=== PATIENT | female | born 1995 | race Caucasian/White ===

== ENCOUNTER 2022-08-18 16:28 | Outpatient (CLI) | payer OTHER, SELFPAY ==
--- NOTE | 2022-08-18 16:00 | CRLHL7_ITS ---
For Patients: As a result of the Century Cures Act, medical imaging exams and procedure reports are released immediately into your electronic medical record. You may view this report before your referring provider. If you have questions, please contact your health care provider. INDICATION: Right upper quadrant abdomen pain. TECHNIQUE: CT abdomen and pelvis without contrast. COMPARISON: 09/16/2021. FINDINGS: Lower chest: Unremarkable. Liver: Normal in size and attenuation. No suspicious masses. Gallbladder and bile ducts: Gallbladder is absent. No biliary dilatation. Pancreas: Unremarkable. No mass or inflammation. Spleen: Normal in size. No masses. Adrenal glands: Normal in size. No nodules. Kidneys: Normal in size. No suspicious masses, stones, or hydronephrosis. GI tract: Unremarkable. Normal in caliber. No sign of mass or inflammation. Post appendectomy. Vasculature: Abdominal aorta is normal in caliber. Lymph nodes: No lymphadenopathy. Peritoneum/Abdominal Wall: Moderate-sized fat containing umbilical hernia with mild inflammatory changes. No sign of mass or infiltration. No free air or significant free fluid. Pelvis: Unremarkable. No pelvic masses. Bones: Unremarkable for age. IMPRESSION: 1. Moderate size fat containing umbilical hernia with mild inflammatory changes. 2. Remainder of the exam is unremarkable. No other finding to explain right upper quadrant abdomen pain. Please note that all CT scans at this facility use dose modulation, iterative reconstruction, and/or weight-based dosing when appropriate to reduce radiation dose to as low as reasonably achievable. Dictated by Iban Do MD @ 08/18/2022 5:40:37 PM (Electronically Signed)
== END 2022-08-18 16:29 | disposition home or self-care (01) ==
LOC: CT 16:29
PROVIDERS: PCP Physician Assistant Medical; Visit Provider Family Medicine
DX: R10.11 Right upper quadrant pain (principal); K42.9 Umbilical hernia without obstruction or gangrene
CPT/HCPCS: 74176

== ENCOUNTER 2025-01-16 13:24 | Emergency (ER) | payer OTHER, SELFPAY ==
[2025-01-16 13:27] VITALS: BP 142/95; PULSE 74; RESP 16; TEMP 35.6; O2SAT 100; BMI 34.1
--- NOTE | 2025-01-16 14:08 | CRLHL7_ITS ---
For Patients: As a result of the Century Cures Act, medical imaging exams and procedure reports are released immediately into your electronic medical record. You may view this report before your referring provider. If you have questions, please contact your health care provider. INDICATION: : abd pain, hx of intusseption, nausea, appy, gastric bypass,. TECHNIQUE: CT abdomen and pelvis acquired with 117 cc Isovue 370 IV contrast. COMPARISON: None. FINDINGS: Lower chest: Left basilar calcified granuloma. Liver: Mild periportal edema. Otherwise, unremarkable. Gallbladder and bile ducts: Cholecystectomy. No biliary ductal dilatation. Pancreas: Unremarkable. No mass or inflammation. Spleen: Mild splenomegaly, measuring 15.0 cm in craniocaudal extent. Adrenal glands: Unremarkable. No nodules. Kidneys: Unremarkable. No suspicious masses, stones, or hydronephrosis. GI tract: Postsurgical changes of Jacky-en-Y gastric bypass. Bowel is normal in caliber without evidence of obstruction. Vasculature: Abdominal aorta is normal in caliber. Mesenteric arteries are patent. Lymph nodes: No lymphadenopathy. Peritoneum/Abdominal Wall: Mild diffuse body wall edema. No free air or significant free fluid. Pelvis: IUD in place. Likely right ovarian corpus luteum. Bones: Inhs-yo-qvsdxldg lumbar levocurvature. IMPRESSION: No acute findings in the abdomen or pelvis. Please note that all CT scans at this facility use dose modulation, iterative reconstruction, and/or weight-based dosing when appropriate to reduce radiation dose to as low as reasonably achievable. Dictated by Wagner Rao MD @ 01/16/2025 4:42:59 PM (Electronically Signed)
--- OUTSIDE RECORDS SUMMARY | 2025-01-16 14:24 | XMS_ITS | Encounter Summary ---
Author Organization [facility] Address [address] [place] [address] Care Team Providers Care Upholstery Instructor Name Role Phone Kathryn Araiza APRN POSTAL TRANSPORTATION CLERK Unavaila ble Nova Samaniego DO Primary Care Provider [phone] Kathryn Araiza APRN POSTAL TRANSPORTATION CLERK Unavaila ble Encounter Details Date Type Department Care Team (Late st Contact Info) Description 10/06/2023 [facility] [place] Advice [facility] [address] [place] [address] Kathryn Araiza APRN POSTAL TRANSPORTATION CLERK [address] [id number] [place] [address] Social History Tobacco Use Types Packs/Day Years Used Date Smoking Tobacco: Never Smokeless Tobacco: Never PHQ-2 Answer Date Recorded PHQ-2 Score 0 06/25/2023 Adolescent Education Answer Date Record ed Getting School Help Needed Not on file 03/07 Comments Unknown Sex and Gender Information Value Date Recorded Sex Assigned at Not on file Legal Sex Female 8:50 AM CDT Gender Identity Not on file Sexual Orientation Not on file documented as of this encounter Plan of Treatment Not on file documented as of this encounter Visit Diagnoses Not on filedocumented in this encounter Care Teams Upholstery Instructor Relationship Specialty Start Date End Date Nova Samaniego DO [address] [place] [address] PCP - General 06/25/23 Kathryn Araiza APRN POSTAL TRANSPORTATION CLERK [address] [address] Nurse Practitioner Neurology 03/01/21 Kathryn Araiza APRN POSTAL TRANSPORTATION CLERK [address] [address] Assigned Neuroscience Provider 07/09/23 01/03/25 documented as of this encounter
--- OUTSIDE RECORDS SUMMARY | 2025-01-16 14:24 | XMS_ITS | Encounter Summary ---
Author Organization [facility] Address [address] [place] [address] Care Team Providers Care Rubber Goods Repairer Name Role Phone Elsewhere, Pcp Primary Care Provider Unavailabl e Encounter Details Date Type Department Care Team (Late st Contact Info) Description 01/13/2025 Clinical Communication Division of Metabolic and Abdominal Wall Reconstructive Surgery in [place], [place] [address] [place] [phone] Libby Lehman, SARAY, C.N.P., M.S.N. [address] [place] [phone] Social History Tobacco Use Types Packs/Day Years Used Date Smoking Tobacco: Never Passive Smoke Exposure: Never Smokeless Tobacco: Never Alcohol Use Standard Drinks/Week Comments Not Currently 1 (1 standard drink = 0.6 oz pur e alcohol) once a month [facility] Utilities Answer Date Recorded In the past 12 months has e [employer], gas, oil, or water [employer] threatened to shut off services in your home? No 12/16/2023 Humiliation, Afraid, Rape, and Kick questionnair e Answer Date Recorded Within the last year, have y ou been afraid of your partner or ex-partner? No 07/15/2022 Within the last year, have y ou been humiliated or emotionally abused in other ways by your partner or ex-partner? No Within the last year, have y ou been kicked, hit, slapped, or otherwise physically hurt by your partner or ex-partner? No 07/15/2022 Within the last year, have y ou been raped or forced to have any kind of sexual activity by your partner or ex-partner? No 07/15/2022 Hunger Vital Sign Answer Date Recorded Within the past 12 months, y ou worried that your food would run out before you got the money to buy more. Never true 12/16/19 24 Within the past 12 months, t he food you bought just didn't last and you didn't have money to get more. Never true 12/16/2023 PRAPARE - Transportation Answer Date Re corded In the past 12 months, has l ack of transportation kept you from medical appointments or from getting medications? No 08/2023 In the past 12 months, has l ack of transportation kept you from meetings, work, or from getting things needed for daily living? No 12/16/2023 Depression Answer Date Recor ded PHQ-9 Total Score (max 27) 4 05/06 Housing Stability Answer Date Recorded What is your living situation today? I have a [facility] place to live 12/16/2023 Education Answer Date Recorded What is the highest level of school you have completed or the highest degree you have received? Bachelor's degree (e.g., BA, AB, BS) 07/15/2022 Comments Unknown Sex and Gender Information Value Date Recorded Sex Assigned at Female 11/06/2017 10:09 AM CDT Legal Sex Female 10:56 PM WATER RESOURCES ENGINEER Gender Identity Female 11/06/2017 10:09 AM CDT Sexual Orientation Straight 11/06/2017 10 :09 AM CDT documented as of this encounter Plan of Treatment Upcoming Encounters Date Type Department Care Team (Latest Contact Info) Description 01/19/2025 12:30 PM CDT Office Visit Division of Metabolic and Abdominal Wall Reconstructive Surgery in [place], [place] [address] [place] [phone] [place] [phone] 01/19/2025 4:00 PM CDT Office Visit Department of Neurology in [place], [place] [address] [place] [phone] Jerald Ochoa M.D. [address] [place] [phone] 02/15/2025 1:30 PM CDT Appointment Department of Neurology in [place], [place] [address] [place] [phone] Jerald Ochoa M.D. [address] [place] [phone] Brittany Pereira, SARAY, C.N.P., M.S.N. [address] [place] [phone] Discharge Disposition: Home or Self Care 03/21/2025 3:30 PM CDT Office Visit Department of Otorhinolaryngology in [place], [place] [address] [place] [phone] Debbie Roberts M.D. [address] [place] [phone] documented as of this encounter Visit Diagnoses Not on filedocumented in this encounter Additional Health Concerns Assessment Noted Time PHQ-9 Depression Total Score: 4 05/06/20 24 9:05 AM WATER RESOURCES ENGINEER documented as of this encounter Care Teams Rubber Goods Repairer Relationship Specialty Start Date End Date Elsewhere, Pcp PCP - General Internal Medicine 05/20/22 documented as of this encounter
--- OUTSIDE RECORDS SUMMARY | 2025-01-16 14:24 | XMS_ITS | Encounter Summary ---
Author Organization [facility] Address [address] [place] [address] Care Team Providers Care Community Development Worker Name Role Phone Elsewhere, Pcp Primary Care Provider Unavailabl e Reason for Referral * Outpatient (Routine) - Authorized Specialty Diagnoses / Procedures Referred By Rachelle t Referred To Contact General Surgery Libby Lehman APRN C.N.P., M.S.N. [address] [place] [phone] Phone: tel: fax: Kuldip Valdivia M.D. [address] [place] [phone] Phone: tel: fax: Referral ID Status Reason Start Date Expiration Date V isits Requested Visits Authorized [id number] Authorized 01/13/2025 07/15/2026 1 1 Scheduling Instructions 1pm with lux Valdivia Encounter Details Date Type Department Care Team (Late st Contact Info) Description 01/13/2025 Orders Only Division of Metabolic and Abdominal Wall Reconstructive Surgery in [place], [place] [address] [place] [phone] Libby Lehman APRN C.N.P., M.S.N. [address] [place] [phone] Social History Tobacco Use Types Packs/Day Years Used Date Smoking Tobacco: Never Passive Smoke Exposure: Never Smokeless Tobacco: Never Alcohol Use Standard Drinks/Week Comments Not Currently 1 (1 standard drink = 0.6 oz pur e alcohol) once a month [facility] Utilities Answer Date Recorded In the past 12 months has e [employer], gas, oil, or water company threatened to shut off services in your [...] your living situation today? I have a [facility] place to live 12/16/2023 Education Answer Date Recorded What is the highest level of school you have completed or the highest degree you have received? Bachelor's degree (e.g., BA, AB, BS) 07/15/2022 Comments Unknown Sex and Gender Information Value Date Recorded Sex Assigned at Female 11/06/2017 10:09 AM CDT Legal Sex Female 10:56 PM MATERIALS RESEARCH ENGINEER Gender Identity Female 11/06/2017 10:09 AM CDT Sexual Orientation Straight 11/06/2017 10 :09 AM CDT documented as of this encounter Plan of Treatment Upcoming Encounters Date Type Department Care Team (Latest Contact Info) Description 01/19/2025 12:30 PM CDT Office Visit Division of Metabolic and Abdominal Wall Reconstructive Surgery in [place], [place] [address] [place] [phone] Kuldip Valdivia M.D. [address] [place] [phone] 01/19/2025 4:00 PM CDT Office Visit Department of Neurology in [place], [place] [address] [place] [phone] Jerald Ochoa M.D. [address] [place] [phone] 02/15/2025 1:30 PM CDT Appointment Department of Neurology in [address] [phone] Jerald Ochoa M.D. [address] [place] [phone] Brittany Pereira, SARAY, C.N.P., M.S.N. [address] [place] [phone] Discharge Disposition: Home or Self Care 03/21/2025 3:30 PM CDT Office Visit Department of Otorhinolaryngology in [place], [place] [address] [place] [phone] Debbie Roberts M.D. [address] [place] [phone] Scheduled Referrals Name Type Priority Associated Diagnoses Orde r Schedule General Surgery office visit (clinic) Outpatient Referral Routine Expected: 01/25/2025, Expires: 04/15/2026 documented as of this encounter Visit Diagnoses Not on filedocumented in this encounter Additional Health Concerns Assessment Noted Time PHQ-9 Depression Total Score: 4 05/06/20 24 9:05 AM MATERIALS RESEARCH ENGINEER documented as of this encounter Care Teams Community Development Worker Relationship Specialty Start Date End Date Elsewhere, Pcp PCP - General Internal Medicine 05/20/22 documented as of this encounter
--- OUTSIDE RECORDS SUMMARY | 2025-01-16 14:24 | XMS_ITS | Encounter Summary ---
Author Organization [facility] Address [address] [place] [address] Care Team Providers Care Landman Name Role Phone Elsewhere, Pcp Primary Care Provider Unavailabl e Encounter Details Date Type Department Care Team (Late st Contact Info) Description 01/13/2025 Clinical Communication Division of Metabolic and Abdominal Wall Reconstructive Surgery in [place], [place] [address] [place] [phone] Libby Lehman, SARAY, C.N.P., M.S.N. [address] [place] [phone] Social History Tobacco Use Types Packs/Day Years Used Date Smoking Tobacco: Never Passive Smoke Exposure: Never Smokeless Tobacco: Never Alcohol Use Standard Drinks/Week Comments Not Currently 1 (1 standard drink = 0.6 oz pur e alcohol) once a month [facility] Utilities Answer Date Recorded In the past 12 months has e [employer], gas, oil, or water [employer] threatened to shut off services in your [...] your living situation today? I have a [facility] place to live 12/16/2023 Education Answer Date Recorded What is the highest level of school you have completed or the highest degree you have received? Bachelor's degree (e.g., BA, AB, BS) 07/15/2022 Comments Unknown Sex and Gender Information Value Date Recorded Sex Assigned at Female 11/06/2017 10:09 AM CDT Legal Sex Female 10:56 PM DRIER OPERATOR HELPER Gender Identity Female 11/06/2017 10:09 AM CDT Sexual Orientation Straight 11/06/2017 10 :09 AM CDT documented as of this encounter Miscellaneous Notes * Telephone Encounter - Libby Lehman APRN, C.N.P., M.S.N. 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 Valdivia August 10, 2023 she had an EGD that which revealed multiple small healing clean based marginal ulcers. These were treated and on December 15, 2023 shehad a repeat EGD that confirmed marginal ulcers were healed. She continued on twice daily PPI for 3months and then reduce to once daily PPI. She continued to open the capsules. She reached out to myself on June 23, 2023 with increased epigastric pain. I increase her omeprazole 40 mg 2 twice daily at that time and started her on Carafate 4 times a day for concern of recurrent marginal ulcer. EGD on 07/21/[address] Edwards was normal with no ulcer and GJ measured 25 mm. At that time she continue to have constant epigastric discomfort that was worse with eating. She was on Zepbound and given her anatomy looked normal, I recommended she stop Zepbound however she has continued and remains on 15 mg weekly. She has been having ongoing issues that she has been seeing her primary care provider. Main complaints on the phone today are lower abdominal pain which has changed from previous epigastric when I met with her last. She notes pain is a 4 to 10/10. Within 15-60 minutes postprandially she has abdominal cramping, sharp pain followed by nausea and subsequent vomiting. She is vomiting at least a couple times per day. Nausea is constant. Her emesis consists of partially digested food. CT scan was completed at outside facility-[facility]. I have requested complete imaging be sent here however report indicates small-bowel to small- bowel short-segment intussusception noted in the left upper quadrant of the abdomen near the anastomosis. Colon decompressed with a large amount of stool within the colon. I discussed the case with Dr. Valdivia who would like to see her in clinic next week. She is currently scheduled with him on , 01/19/2025. I have instructed her to increase MiraLax to twice daily in order to promote bowel movements. documented in this encounter Plan of Treatment Upcoming Encounters Date Type Department Care Team (Latest Contact Info) Description 01/19/2025 12:30 PM CDT Office Visit Division of Metabolic and Abdominal Wall Reconstructive Surgery in [place], [place] [address] [place] [phone] Kuldip Valdivia M.D. [address] [place] [phone] 01/19/2025 4:00 PM CDT Office Visit Department of Neurology in [place], [place] [address] [place] [phone] Jerald Ochoa M.D. [address] [place] [phone] 02/15/2025 1:30 PM CDT Appointment Department of Neurology in [place], [place] [address] [place] [phone] Jerald Ochoa M.D. [address] [place] [phone] Brittany Pereira APRN, C.N.P., M.S.N. [address] [place] [phone] Discharge Disposition: Home or Self Care 03/21/2025 3:30 PM CDT Office Visit Department of Otorhinolaryngology in [place], [place] [address] [place] [phone] Debbie Roberts M.D. [address] [place] [phone] documented as of this encounter Visit Diagnoses Not on filedocumented in this encounter Additional Health Concerns Assessment Noted Time PHQ-9 Depression Total Score: 4 05/06/20 24 9:05 AM DRIER OPERATOR HELPER documented as of this encounter Care Teams Landman Relationship Specialty Start Date End Date Elsewhere, Pcp PCP - General Internal Medicine 05/20/22 documented as of this encounter
--- OUTSIDE RECORDS SUMMARY | 2025-01-16 14:24 | XMS_ITS | Clinical Summary ---
Author Organization [facility] Address [address] [place] [address] Care Team Providers Care Oil Developer Name Role Phone Kathryn Araiza Josemarilynn VENEER JOINER CIVIL ENGINEERING SPECIALIST Unavaila ble ShaqNova sadler Roxana DO Primary Care Provider [phone] Allergies Active Allergy Reactions Criticality Noted Date Comments Dairy Digestive Nausea and Vomiting 03/21/2021 Lactose Nausea and Vomiting 11/19/2016 Lisinopril Rash Low 10/28/2017 Metformin 07/09/2020 Other reaction(s): Vomiting Medications acetaminophen (TYLENOL) 500 MG tablet Take 1,000 mg by mouth 1 Active albuterol (PROAIR HFA/PROVENTIL HFA/VENTOLIN HFA) 108 (90 BASE) MCG/ACT Inhaler Active VENTOLIN HFA 108 (90 Base) MCG/ACT inhaler INHALE 1 TO 2 PUFFS BY MOUTH EVERY 6 HOURS NEEDED 1 Active cetirizine (ZYRTEC) 10 MG tablet Take 10 mg by mouth 9 Active etonogestrel (NEXPLANON) 68 MG IMPL Inject 1 each Subcutaneous 1 Active fluticasone (FLONASE) 50 MCG/ACT nasal spray SHAKE LQ AND U 2 SPRAYS IEN QD 0 Active montelukast (SINGULAIR) 10 MG tablet Take 1 tablet by mouth At Bedtime 1 Active Rimegepant Sulfate 75 MG TBDPIndications :Intractable chronic migraine without aura and without status migrainosus Take 75 mg by mouth See Admin Instructions Take 75 mg orally per 24 hours placed on or under the tongue; MAX 75 mg/24 hours; 8 tablet 9 1 Active budesonide (RINOCORT AQUA) 32 MCG/ACT nasal spray SHAKE LIQUID AND USE 2 SPRAYS IN EACH NOSTRIL EVERY DAY 2 Active cyanocobalamin (CYANOCOBALAMIN ) 1000 MCG/ML injection Inject 1,000 mcg Subcutaneous every 30 days 3 Active fexofenadine (TL) 180 MG tablet Take 180 mg by mouth daily 2 Active ipratropium - albuterol 0.5 mg/2.5 mg/3 mL (DUONEB) 0.5-2.5 (3) MG/3ML neb solution Inhale 3 mLs into the lungs every 4 hours as needed 3 Active levalbuterol (XOPENEX HFA) 45 MCG/ACT inhaler Inhale 1-2 puffs into the lungs every 6 hours as needed for shortness of breath or wheezing 3 Active prochlorperazin e (COMPAZINE) 5 MG tabletIndicatio ns:Intractable chronic migraine without aura and without status migrainosus Take 1-2 tablets (5-10 mg) by mouth every 6 hours as needed for nausea or vomiting 20 tablet 3 4 Active naratriptan (AMERGE) 1 MG tabletIndicatio ns:Intractable chronic migraine without aura and without status migrainosus Take 1 tablet (1 mg) by mouth at onset of headache for migraine May repeat in 4 hours. Max 5 tablets/24 hours. 12 tablet 5 4 Active Fremanezumab-vf rm (AJOVY) 225 MG/1.5ML SOAJIndications :Intractable chronic migraine without aura and without status migrainosus Inject 225 mg Subcutaneous every 30 days 1.5 mL 11 4 Active Active Problems Problem Noted Date Diagnosed Date Anxiety 11/06/2021 Asthma 11/06/2021 Calculus of gallbladder with cholecystitis without biliary obstruction 11/06/2021 Diabetes mellitus 11/06/2021 Kidney disease 11/06/2021 Obstructive lung disease 11/06/2021 Restrictive lung disease 11/06/2021 Dysphagia 07/17/2021 Moderate persistent asthma, unspecified whether complicated 07/05/2021 Insomnia, idiopathic 07/05/2020 Idiopathic intracranial hypertension 05/02/2020 Hepatic steatosis 02/21/2020 Dyslipidemia 02/06/2020 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 Acute appendicitis 08/16/2019 Fatigue 04/20/2019 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 (11/06/2021): Path report [facility] (spring 2016): hyperkeratoses lateral edge tongue, premalignant epithelial dysplasia Overview: Path report [facility] (spring 2016): hyperkeratoses lateral edge tongue, premalignant epithelial dysplasia Other proteinuria 06/16/2017 Overview (11/06/2021): [facility] notes, 10/2016 Hypertension 10/20/2016 Prolonged QT interval 06/06/2016 Labile essential hypertension 06/05/2016 Depression with anxiety 09/06/2014 Vitamin D deficiency 09/06/2014 Lactose intolerance 08/22/2014 Morbid obesity 05/26/2011 Family History Medical History Relation Comments Macular Degeneration Paternal Grandmother Glaucoma No family hx of Relation Status Comments Paternal Grandmother Social History Tobacco Use Types Packs/Day Years Used Date Smoking Tobacco: Never Smokeless Tobacco: Never Tobacco Cessation:Counseling Given: Not Answered PHQ-2 Answer Date Recorded PHQ-2 Score 0 06/25/2023 Adolescent Education Answer Date Record ed Getting School Help Needed Not on file 03/07 Comments Unknown Sex and Gender Information Value Date Recorded Sex Assigned at Not on file Legal Sex Female 8:50 AM CDT Gender Identity Not on file Sexual Orientation Not on file Last Filed Vital Signs Vital Sign Reading Time Taken Comments Blood Pressure - - Pulse - - Temperature - - Respiratory Rate - - Oxygen Saturation - - Inhaled Oxygen Concentration - - Weight 181.4 kg (400 lb) 06/25/2023 10:56 AM FILM CASTING OPERATOR Height 177.8 cm (5' 10) 06/25/2023 10:56 AM FILM CASTING OPERATOR Body Mass Index 57.39 06/25/2023 10:56 AM FILM CASTING OPERATOR Plan of Treatment Health Maintenance Due Date Last Done Comments A1C 1995 ADVANCE CARE PLANNING 1995 ANNUAL REVIEW OF HM ORDERS 1995 BMP 1995 COPD ACTION PLAN 1995 DIABETIC FOOT EXAM 1995 LIPID 1995 MICROALBUMIN 1995 SPIROMETRY 1995 YEARLY PREVENTIVE VISIT 1998 HIV SCREENING 2010 HEPATITIS C SCREENING 2013 PAP 2016 EYE EXAM 11/06/2022 11/06/2021 COVID-19 VACCINE (2023-2 5 season) 2024 04/22/2023, 05/20/2022, 05/03/2021, Additional history exists PHQ-2 (once per calendar year) 2024 0 06/25/2023, 11/06/2021, 03/21/2021 INFLUENZA VACCINE (#1) 2025 , 05/20/2022, 03/19/2021, Additional history exists DTAP/TDAP/TD VACCINE (8 - Td or Tdap) 06/05/2027 06/05/2017, 02/11/2007, 07/24/2000, Additional history exists ZOSTER VACCINE (1 of 2) 2045 HEPATITIS B VACCINE Completed 04/27/1996, 1995, 1995 MENINGITIS VACCINE Completed 04/18/2013 HPV VACCINE Completed 04/05/2015, 02/2014, 04/18/2013 PNEUMOCOCCAL VACCINE: PEDIAT RICS (0 to 5 YEARS) AND AT-RISK PATIENTS (6 to 49 YEARS) Completed 04/22/2023, 03/19/2021 Insurance VNG PLAN [employer] Care Teams Oil Developer Relationship Specialty Start Date End Date Nova Samaniego DO [address] [place] [address] PCP - General 06/25/23 Kathryn Araiza APRN CIVIL ENGINEERING SPECIALIST [address] [facility] [id number] [address] Nurse Practitioner Neurology 03/01/21
--- OUTSIDE RECORDS SUMMARY | 2025-01-16 14:24 | XMS_ITS | Encounter Summary ---
Author Organization [facility] Address [address] [place] [address] Care Team Providers Care Button Inspector Name Role Phone Kathryn Araiza APRN PUBLIC HEALTH DIETITIAN Unavaila ble Nova Samaniego DO Primary Care Provider [phone] Kathryn Araiza APRN PUBLIC HEALTH DIETITIAN Unavaila ble Encounter Details Date Type Department Care Team (Late st Contact Info) Description 06/25/2023 [facility] Advice [facility] [address] [place] [address] Kathryn Araiza APRN PUBLIC HEALTH DIETITIAN 9 [id number] [place] [address] Social History Tobacco Use Types [...] on filedocumented in this encounter Care Teams Button Inspector Relationship Specialty Start Date End Date Nova Samaniego DO [address] [place] [address] PCP - General 06/25/23 Kathryn Araiza APRN PUBLIC HEALTH DIETITIAN [address] [address] Nurse Practitioner Neurology 03/01/21 Kathryn Araiza APRN PUBLIC HEALTH DIETITIAN [address] [address] Assigned Neuroscience Provider 07/09/23 01/03/25 documented as of this encounter
--- OUTSIDE RECORDS SUMMARY | 2025-01-16 14:24 | XMS_ITS | Encounter Summary ---
Author Organization [facility] Address [address] [place] [address] Care Team Providers Care Client Relationship Manager Name Role Phone Kathryn Araiza APRN INSTRUCTIONAL TECHNOLOGY TEACHER Unavaila ble Nova Samaniego DO Primary Care Provider [phone] Kathryn Araiza APRN INSTRUCTIONAL TECHNOLOGY TEACHER Unavaila ble Encounter Details Date Type Department Care Team (Late st Contact Info) Description 06/25/2023 [facility] [place] Medical Advice [facility] [address] [place] [address] Kathryn Araiza APRN INSTRUCTIONAL TECHNOLOGY TEACHER 9 [id number] [place] [address] Social History Tobacco Use Types [...] on filedocumented in this encounter Care Teams Client Relationship Manager Relationship Specialty Start Date End Date Nova Samaniego DO [address] [place] [address] PCP - General 06/25/23 Kathryn Araiza APRN INSTRUCTIONAL TECHNOLOGY TEACHER [address] [address] Nurse Practitioner Neurology 03/01/21 Kathryn Araiza APRN INSTRUCTIONAL TECHNOLOGY TEACHER [address] [address] Assigned Neuroscience Provider 07/09/23 01/03/25 documented as of this encounter
--- OUTSIDE RECORDS SUMMARY | 2025-01-16 14:24 | XMS_ITS | Encounter Summary ---
Author Organization [facility] Address [address] [place] [address] Care Team Providers Care Tow Operator Name Role Phone Maine Lopez PA-C Primary Care Provider Unav Kathryn Gonzalez CAD ENGINEER ELECTRICAL & INSTRUMENTATION SUPERVISOR Unavaila ble Jeremy Boateng MD Unavailable [phone] Nova Samaniego DO Primary Care Provider [phone] Kathryn Araiza CAD ENGINEER ELECTRICAL & INSTRUMENTATION SUPERVISOR Unavaila ble Encounter Details Date Type Department Care Team (Late st Contact Info) Description 01/06/2023 [facility] Medical Advice [facility] [address] [place] [address] Kathryn Araiza, CAD ENGINEER ELECTRICAL & INSTRUMENTATION SUPERVISOR [address] [place] [address] [id number] [place] [address] Social History Tobacco Use Types Packs/Day Years Used Date Smoking Tobacco: Never Smokeless Tobacco: Never PHQ-2 Answer Date Recorded PHQ-2 Score 0 03/21/2021 Comments Unknown Sex and Gender Information Value Date Recorded Sex Assigned at Not on file Legal Sex Female 8:50 AM CDT Gender Identity Not on file Sexual Orientation Not on file documented as of this encounter Plan of Treatment Not on file documented as of this encounter Visit Diagnoses Not on filedocumented in this encounter Care Teams Tow Operator Relationship Specialty Start Date End Date Maine Lopez PA-C PCP - General 03/01/21 06/24/23 Nova Samaniego DO [address] [place] [address] PCP - General 06/25/23 Kathryn Araiza APRN ELECTRICAL & INSTRUMENTATION SUPERVISOR [address] [place] [address] Nurse Practitioner Neurology 03/01/21 Jeremy Boateng MD [address] [place] [address] Assigned Surgical Provider 12/07/21 Kathryn Araiza APRN ELECTRICAL & INSTRUMENTATION SUPERVISOR [address] [place] [address] Assigned Neuroscience Provider 07/09/23 01/03/25 documented as of this encounter
--- OUTSIDE RECORDS SUMMARY | 2025-01-16 14:24 | XMS_ITS | Encounter Summary ---
Author Organization [facility] Address [address] [place] [address] Care Team Providers Care Dry Plasterer Name Role Phone Maine Lopez PA-C Primary Care Provider Unav Kathryn Gonzalez SOLUTION DEVELOPER FRONTEND ENGINEER Unavaila ble Jeremy Boateng MD Unavailable [phone] Nova Samaniego DO Primary Care Provider [phone] Kathryn Araiza SOLUTION DEVELOPER FRONTEND ENGINEER Unavaila ble Encounter Details Date Type Department Care Team (Late st Contact Info) Description 01/12/2023 [facility] Medical Advice [facility] Neu[facility] [address] [address] Martita Paul RN Social History Tobacco Use Types Packs/Day Years [...] on filedocumented in this encounter Care Teams Dry Plasterer Relationship Specialty Start Date End Date Maine Lopez PA-C PCP - General 03/01/21 06/24/23 Nova Samaniego DO [address] [place] [address] PCP - General 06/25/23 Kathryn Araiza APRN FRONTEND ENGINEER [address] [place] [phone] Nurse Practitioner Neurology 03/01/21 Jeremy Boateng MD [address] [place] [phone] Assigned Surgical Provider 12/07/21 Kathryn Araiza APRN FRONTEND ENGINEER [address] [place] [phone] Assigned Neuroscience Provider 07/09/23 01/03/25 documented as of this encounter
--- OUTSIDE RECORDS SUMMARY | 2025-01-16 14:24 | XMS_ITS | Encounter Summary ---
Author Organization [facility] Address [address] [place] [address] Care Team Providers Care Credit Administrator Name Role Phone Elsewhere, Pcp Primary Care Provider Unavailabl e Encounter Details Date Type Department Care Team (Late st Contact Info) Description 01/13/2025 Clinical Communication Division of Metabolic and Abdominal Wall Reconstructive Surgery in [place], [place] [address] [place] [phone] Libby Lehman, SARAY, C.N.P., M.S.N. [address] [place] [phone] Social History Tobacco Use Types Packs/Day Years Used Date Smoking Tobacco: Never Passive Smoke Exposure: Never Smokeless Tobacco: Never Alcohol Use Standard Drinks/Week Comments Not Currently 1 (1 standard drink = 0.6 oz pur e alcohol) once a month [facility] Utilities Answer Date Recorded In the past 12 months has e [employer], gas, oil, or water [employer] threatened to shut off services in your [...] situation today? I have a [facility] place to live 12/16/2023 Education Answer Date Recorded What is the highest level of school you have completed or the highest degree you have received? Bachelor's degree (e.g., BA, AB, BS) 07/15/2022 Comments Unknown Sex and Gender Information Value Date Recorded Sex Assigned at Female 11/06/2017 10:09 AM CDT Legal Sex Female 10:56 PM TAPE SEWING MACHINE OPERATOR Gender Identity Female 11/06/2017 10:09 AM CDT Sexual Orientation Straight 11/06/2017 10 :09 AM CDT documented as of this encounter Plan of Treatment Upcoming Encounters Date Type Department Care Team (Latest Contact Info) Description 01/19/2025 12:30 PM CDT Office Visit Division of Metabolic and Abdominal Wall Reconstructive Surgery in [place], [place] [address] [place] [phone] Kuld[place] [address] 01/19/2025 4:00 PM CDT Office Visit Department of Neurology in [place], [place] [address] [place] [phone] Jerald Ochoa M.D. [address] [place] [phone] 02/15/2025 1:30 PM CDT Appointment Department of Neurology in [place], [place] [address] [place] [phone] Jerald Ochoa M.D. [address] [place] [phone] Brittany Pereira, SARAY, C.N.P., M.S.N. [address] [place] [phone] Discharge Disposition: Home or Self Care 03/21/2025 3:30 PM CDT Office Visit Department of Otorhinolaryngology in [place], [place] [address] [place] [phone] Debbie Roberts M.D. [address] [place] [phone] documented as of this encounter Visit Diagnoses Not on filedocumented in this encounter Additional Health Concerns Assessment Noted Time PHQ-9 Depression Total Score: 4 05/06/20 24 9:05 AM TAPE SEWING MACHINE OPERATOR documented as of this encounter Care Teams Credit Administrator Relationship Specialty Start Date End Date Elsewhere, Pcp PCP - General Internal Medicine 05/20/22 documented as of this encounter
--- OUTSIDE RECORDS SUMMARY | 2025-01-16 14:25 | XMS_ITS | Clinical Summary ---
Author Organization [facility] Address [address] [place] [address] Care Team Providers [employer] Name Role Phone Elsewhere, Pcp Primary Care Provider Unavailabl e Source Comments Patient records contain information from all sites at [facility]. For routine questions regarding patient records, call [phone] during business hours, M-F 8:00 AM - 5:00 PM Central Time. Record requests for emergency care only can be directed to [phone] at any time.[facility] Allergies Active Allergy Reactions Criticality Noted Date Comments Lactase Nausea And Vomiting, GI intolerance 03/21/2021 Lactose Nausea And Vomiting, Other (see comments) 11/19/2016 Lisinopril Rash,Other (see comments) Low 10/28/2017 Metformin GI intolerance 07/09/2020 Other reaction(s): Vomiting Medications * This document contains information received from the source organization and may not represent a complete record from that organization. blood pressure monitor kit Check blood pressure daily and record readings for appointments 03/12/20 20 Active montelukast (SINGULAIR) 10 mg tablet Take 1 tablet by mouth at bedtime. 08/21/19 21 Active mometasone-formote rol (DULERA 100) 100-5 mcg/actuation inhaler Inhale 2 puffs 2 (two) times a day. Rinse mouth with water after use to reduce aftertaste and incidence of candidiasis. Do not swallow. Active ipratropium-albute roL (DUONEB) 0.5-2.5 mg/3 mL nebulizer solution Inhale 3 mL by nebulization 4 (four) times a day as needed for wheezing. Active levalbuterol (XOPENEX HFA) 45 mcg/actuation inhaler Inhale 2 puffs every 6 (six) hours as needed for wheezing or shortness of breath. Active albuterol 2.5 mg /3 mL nebulizer solution Inhale 2.5 mg by nebulization every 6 (six) hours as needed for wheezing. Active pediatric multivitamin-iron- minerals (FLINTSTONES COMPLETE) chewable tablet Chew 1 tablet 2 (two) times a day. 05/07/20 Active calcium carbonate 1000 mg (400 mg calcium) chewable tablet Chew 1 tablet (400 mg of calcium total) 2 (two) times a day with meals. For life 05/07/20 Active SQ 3 ml Injection Kit Use as directed to inject prescribed medication. 1 kit = #15-3ml syr, #30-27G 1/2 needles, #30 alcohol wipes 1 kit 3 3:17 PM TRAFFIC ENUMERATOR 05/07/20 23 Active cyanocobalamin (Vitamin B-12) 1,000 mcg/mL injection Inject 1 mL (1,000 mcg total) under the skin every 30 (thirty) days. Please dispense with injection kit. Acceptable needle range is 25 to 27 gauge, 1/2 to 5/8 of an inch long. For life 3 mL 3 5 6:07 PM CDT 09/10/19 24 Active prochlorperazine (COMPAZINE) 5 mg tablet Take 5 mg by mouth every 6 (six) hours as needed for vomiting or nausea. 06/25/19 24 Active hydrOXYzine (Atarax) 25 mg tablet Take 25 mg by mouth every 8 (eight) hours as needed for anxiety. 11/23/19 24 Active mometasone 0.033 %-ipratropium 0.02 %-diphenhydramine 0.033 % nasal spray Administer 2 sprays into each nostril 2 (two) times a day. Shake very well prior to each use. 84 mL 11 5 3:52 PM CDT 04/18/20 24 025 Active venlafaxine (Effexor) 75 mg tablet Take 1 tablet (75 mg total) by mouth 2 (two) times a day. 180 tablet 3 4 5:04 PM TRAFFIC ENUMERATOR 08/17/19 24 Active losartan (Cozaar) 50 mg tablet Take 1 tablet (50 mg total) by mouth daily. 90 tablet 3 4 5:04 PM TRAFFIC ENUMERATOR 07/20/19 24 Active rimegepant (Nurtec ODT) [address] 1 tablet on the tongue every day if needed for headache 8 tablet 11 5 6:07 PM CDT 04/15/20 24 Active buPROPion (Wellbutrin) 100 mg tablet Take 1 tablet (100 mg total) by mouth 3 (three) times a day based on updated ISMP guidelines. Do not crush or chew. 270 tablet 4 4 5:04 PM TRAFFIC ENUMERATOR 01/12/20 24 Active naratriptan (Amerge) 2.5 mg tabletIndications: Chronic Migraine Take 1 tablet (2.5 mg total) by mouth as needed for migraine. May repeat dose in 4 hours as needed. Max 5 mg per day. Limit use to no more than 9 days a month. 54 tablet 3 4 11:04 AM TRAFFIC ENUMERATOR 05/06/20 24 Active Additional Information Patient taking differently: 5 mgoral As needed, migraine, May repeat dose in 4 hours as needed. Max 5 mg per day. Limit use to no more than 9 days a month., Reported on 07/21/2024 omeprazole (PriLOSEC) [address] capsule Take 1 capsule (40 mg total) by mouth 2 (two) times a day before morning and evening meals. Known GJ ulcer 180 capsule 3 07/05/19 25 026 Active Zepbound 15 mg/0.5 mL injection pen INJECT 15ML UNDER THE SKIN ONCE WEEKLY 2 mL 10/05/19 25 Active Active Problems Problem Noted Date Diagnosed Date Dehydration 05/18/2023 Surgery Bariatric Status Post 05/18/2023 Asthma NOS 03/20/2023 Obstructive Sleep Apnea Adult 03/20/2023 Body Mass Index 60.0 To 69.9 Adult 01/13/2023 Deviation Nasal Septal 01/22/2022 Overview (01/22/2022): Added automatically from request for surgery [id number] Obstruction Nasal 01/22/2022 Overview (01/22/2022): Added automatically from request for surgery [id number] Gastroesophageal Reflux Disease 01/22/2022 Apnea Sleep Obstructive 01/22/2022 Rhinitis Allergic 01/22/2022 Anxiety 11/06/2021 Restrictive Lung Disease 11/06/2021 Dysphagia 07/17/2021 Asthma Moderate Persistent 07/05/2021 Chronic Insomnia Disorder 07/05/2020 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 Fatty Liver 02/21/2020 Dyslipidemia 02/06/2020 Fatigue 04/20/2019 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 (01/15/2024): Overview: Path report [facility] (spring 2016): hyperkeratoses lateral edge tongue, premalignant epithelial dysplasia Path report [facility] (spring 2016): hyperkeratoses lateral edge tongue, premalignant epithelial dysplasia Path report [facility] (spring 2016): hyperkeratoses lateral edge tongue, premalignant epithelial dysplasia Other Proteinuria 06/16/2017 Overview (01/15/2024): Hernandez notes, 10/2016 Persistent Depressive Disorder 12/30/2016 Prolonged QT Interval 06/06/2016 Hypertension Labile 06/05/2016 Deficiency Vitamin D 09/06/2014 Other Specified Anxiety Disorders 09/06/2014 Intolerance Lactose 08/22/2014 Morbid Obesity 05/26/2011 Encounters * This document contains information received from the source organization and may not represent a complete record from that organization. Date Type Department Care Team Description 01/13/2025 Clinical Communication Division of Metabolic and Abdominal Wall Reconstructive Surgery in [place], [place] [address] [place] [address] Libby Lehman APRN, C.N.P., M.S.N. 01/13/2025 Clinical Communication Division of Metabolic and Abdominal Wall Reconstructive Surgery in [place], [place] [address] [place] [address] Libby Lehman APRN, C.N.P., M.S.N. 01/13/2025 Orders Only Division of Metabolic and Abdominal Wall Reconstructive Surgery in [place], [place] [address] [place] [address] Libby Lehman APRN, C.N.La., M.S.N. 01/13/2025 Clinical Communication Division of Metabolic and Abdominal Wall Reconstructive Surgery in [place], [place] [address] [place] [address] Libby Lehman APRN, C.N.La., M.S.N. 11/22/2024 Clinical Communication Department of Neurology in [place], [place] [address] [place] [address] Jerald Ochoa M.D. 11/21/2024 2:38 PM CDT - 11/21/2024 3:01 PM CDT Hospital Encounter Department of Neurology in [place], [place] [address] [place] [phone] Jerald Ochoa M.D. Chronic Migraine Discharge Disposition: Home or Self Care 11/21/2024 8:30 AM CDT Telemedicine [facility] at [address] [phone] Maritza Mobley D.OTalon Sinusitis Acute (Primary Dx) 11/01/2024 Refill Department of Nutrition and Diabetes Education in [place], [place] [address] [place] [phone] Jerald Khoury APRN, C.N.P., D.N.P. Med Refill 10/20/2024 Orders Only Division of Endocrinology in [place], [place] [address] [place] [address] Renetta Castañeda APRN, C.N.P. from Last 3 Months Immunizations Immunization Administration Dates Next Due HepB Pediatric/Adolescent 04/27/1996,1995, 1995 SARS-COV-2 (COVID-19) - PFIZ ER (Discontinued)(12 years or older) 05/03/2021,10/02/2020,09/05/2020 SARS-COV-2 (COVID-19) - PFIZ ER BIVALENT TS(Discontinued)(12 YEARS OR OLDER) 05/20/2022 Tuberculin Skin Test, Unspecified 12/11/2015 influenza vaccine quad (FLUZ ONE/FLUARIX) (6 months and older)(PF) 05/20/2022 Family History Medical History Relation Name Comments Colon polyps Father eugene Hypertension Father eugene Obesity Father eugene Prostate cancer Father's Brother 1 mariza Other cancer Father's Brother 2 nani Arthritis Maternal Grandmother marlena Colon polyps Maternal Grandmother marlena Dementia Maternal Grandmother marlena Diabetes Maternal Grandmother marlena Hypertension Maternal Grandmother marlena Kidney disease Maternal Grandmother marlena Obesity Maternal Grandmother marlena Sleep apnea Maternal Grandmother marlena Stroke Maternal Grandmother marlena Transient ischemic attack Maternal Grandmother marlena Anxiety disorder Mother bess Arthritis Mother bess Hypertension Mother bess Leukemia Mother bess Liver disease Mother bess Lymphoma Mother bess Melanoma Mother bess Obesity Mother bess Rheum arthritis Mother bess Skin cancer Mother bess Sleep apnea Mother bess Other cancer Mother's Brother bill Esphogeal c ancer Other cancer Paternal Grandmother lizzy Stroke Paternal Grandmother lizzy Transient ischemic attack Paternal Grandmother josephi ne Relation Name Status Comments Father eugene Father's Brother 1 mariza Father's Brother 2 nani Maternal Grandmother marlena Mother bess Mother's Brother bill Paternal Grandmother lizzy Social History Tobacco Use Types Packs/Day Years Used Date Smoking Tobacco: Never Passive Smoke Exposure: Never Smokeless Tobacco: Never Tobacco Cessation:Counseling Given: Not Answered Alcohol Use Standard Drinks/Week Comments Not Currently 1 (1 standard drink = 0.6 oz pur e alcohol) once a month [facility] Utilities Answer Date Recorded In the past 12 months has [employer], or water [employer] threatened to shut off services in your [...] your living situation today? I have a [facility] place to live 12/16/2023 Education Answer Date Recorded What is the highest level of school you have completed or the highest degree you have received? Bachelor's degree (e.g., BA, AB, BS) 07/15/2022 Comments Unknown Sex and Gender Information Value Date Recorded Sex Assigned at Female 11/06/2017 10:09 AM CDT Legal Sex Female 10:56 PM TRAFFIC ENUMERATOR Gender Identity Female 11/06/2017 10:09 AM CDT Sexual Orientation Straight 11/06/2017 10 :09 AM CDT Last Filed Vital Signs Vital Sign Reading Time Taken Comments Blood Pressure 154/98 07/21/2024 11:18 AM TRAFFIC ENUMERATOR Pulse 61 07/21/2024 11:23 AM TRAFFIC ENUMERATOR Temperature 36.5 C (97.7 F) 07/21/2024 10:55 AM TRAFFIC ENUMERATOR Respiratory Rate 20 07/21/2024 11:23 AM TRAFFIC ENUMERATOR Oxygen Saturation 100% 07/21/2024 11:23 AM TRAFFIC ENUMERATOR Inhaled Oxygen Concentration - - Weight 124 kg (273 lb) 07/21/2024 9:38 AM TRAFFIC ENUMERATOR Height 175.3 cm (5' 9) 07/21/2024 9:38 AM TRAFFIC ENUMERATOR Body Mass Index 40.32 07/21/2024 9:38 AM TRAFFIC ENUMERATOR Plan of Treatment Upcoming Encounters Date Type Department Care Team (Latest Contact Info) Description 01/19/2025 12:30 PM CDT Office Visit Division of Metabolic and Abdominal Wall Reconstructive Surgery in [place], [place] [address] [place] [phone] Kuldip Valdivia M.D. [address] [place] [phone] 01/19/2025 4:00 PM CDT Office Visit Department of Neurology in [address] [phone] Jerald Ochoa M.D. [address] [place] [phone] 02/15/2025 1:30 PM CDT Appointment Department of Neurology in [address] [address] Jerald Ochoa M.D. [address] [place] [phone] Brittany Pereira, SARAY, C.N.P., M.S.N. [address] [place] [phone] Discharge Disposition: Home or Self Care 03/21/2025 3:30 PM CDT Office Visit Department of Otorhinolaryngology in [place], [place] [address] [place] [phone] Debbie Roberts M.D. [address] [place] [phone] Health Maintenance Due Date Last Done Comments Asthma Action Plan 03/20/2023 Asthma Control Test Questionnaire 03/20/2023 Asthma Management/Exacerbati on Questionnaire (AMQ/AEQ) 03/20/2023 Depression Monitoring (PHQ-9 for quality tracking) 06/15/2024 Creatinine Level (Kidney Fun ction Test) 07/31/2024 07/31/2023, 07/20/2023, 01/02/2023, Additional history exists Potassium Level 07/31/2024 07/31/2023, 0 10/2023, 04/22/2023, Additional history exists Sodium Level 07/31/2024 07/31/2023, 0 10/2023, 01/02/2023, Additional history exists Office Visit for Blood Press ure Check / Re-check 08/06/2024 05/06/2024 Depression Monitoring (PHQ-9) 09/03/2024 05/06/2024 Lipid (Cholesterol) Screening 10/28/2024, 01/02/2023, 02/03/2020, Additional history exists COVID-19 Vaccine (7 - Pfizer risk season) 2024 05/03/2024, 04/22/2023, 05/20/2022, Additional history exists Influenza Vaccine (#1) 2025 , 04/22/2023, 05/20/2022, Additional history exists DTaP,Tdap,and Td Vaccines (8 - Td or Tdap) 06/05/2027 06/05/2017, 02/11/2007, 07/24/2000, Additional history exists Cervical/Vaginal Cancer Screening 07/27/2027 07/27/2024 (Performed elsewhere), 03/15/2016 (Performed elsewhere) Hepatitis B Vaccines Completed 04/27/1996, 1995, 1995 IPV Vaccines Completed 07/24/2000, 08/13, 1995, Additional history exists HPV Vaccines Completed 04/05/2015, 02/2014, 04/18/2013 Hepatitis B Screening Discontinued 04/18/2020 Pneumococcal vaccine (0-49 years) Completed 023, 03/19/2021 Medical Devices Implanted Type Area Baseball Inspector Device Identifier Shelf Expiration Date Model / Serial / Lot Subdermal Contraceptive Implant Subdermal Contraceptive Implant Left: Arm Description:nexplanon implan t-ok to scan up to 3 T per [employer] MRSO Procedures Procedure Name Priority Date/Time Associated Diagnosis Comments OUTSIDE CT BODY Routine 01/13/2025 9:[address] CHEMODENERV FACIAL TRIGEM SHAR Routine 11/21/2024 3:00 PM CDT Chronic Migraine LIPID PANEL, S Routine 10/29/2023 7:29 AM CDT Gastric Bypass Status Post BASIC METABOLIC PANEL, S/P Routine 07/31/2023 12:20 PM TRAFFIC ENUMERATOR Pain Epigastric HEPATITIS B SURFACE ANTIGEN Routine 04/18/2020 11:02 AM TRAFFIC ENUMERATOR Headache Chronic from Last 3 Months or Most Recently Relevant to Health Maintenance Results * Outside CT Body (01/13/2025 9:05 AM CDT) 01/13/2025 10:2 2 AM CDT Addenda Addendum by [employer], Outside on 01/13/2025 10:22 AM CDT BELOW REPORT RECEIVED BY [facility] ON 01/13/2025 12:47:11 [id number] For Patients: As a result of the 21st Century Cures Act, medical imaging exams and procedure reports are released immediately into your electronic medical record. You may view this report before your referring provider. If you have questions, please contact your health care provider. INDICATION: Urinary incontinence, urinary tract infection symptoms and amie-colored stools. TECHNIQUE: Axial images were obtained from the diaphragm to the pubic symphysis. Reformats were obtained in the coronal and sagittal plane. IV Contrast: Initial noncontrast followed by 100 cc Omnipaque 350 Oral Contrast: None COMPARISON: Abdomen and pelvis CT 05/19/2024 FINDINGS: Lower chest: Calcified granuloma within the left lower lobe. Liver: Unremarkable. Normal in size and attenuation. No masses. Gallbladder and bile ducts: Status post cholecystectomy. Spleen: Unremarkable. Normal in size without mass. Pancreas: Unremarkable. No mass or inflammation. Adrenal glands: Unremarkable. No nodules. Kidneys: Unremarkable. No masses, stones, or hydronephrosis. Vasculature: Unremarkable. GI tract: Status post gastric bypass. No dilated loops of small intestine. Small bowel to small bowel short segment intussusception noted within the left upper quadrant near the anastomosis (series 9, image 79; series 11, image 48). Colon decompressed with a large amount of stool within the colon. Pelvis: Anteverted uterus with intrauterine device. Dominant follicle right ovary with small free fluid in the pelvic cul-de-sac. Bladder mildly distended and unremarkable. Bones: Minimal degenerative disc disease lumbar spine. Impression: 1. No nephrolithiasis or hydronephrosis. Unremarkable CT appearance of the kidneys. 2. Status post gastric bypass with short-segment small bowel-small bowel intussusception in the left flank without evidence of obstruction. This can be an incidental finding on CT scan although if there is persistent pain, gastroenterology consultation suggested. Please note that all CT scans at this facility use dose modulation, iterative reconstruction, and/or weight-based dosing when appropriate to reduce radiation dose to as low as reasonably achievable. Dictated by Enoch Patricia MD @ 01/13/2025 10:22:11 AM (Electronically Signed) READ BY Enoch Patricia RELEASED BY BINU Addendum by [employer], Outside on 01/13/2025 10:22 AM CDT BELOW REPORT RECEIVED BY [facility] ON 01/13/2025 12:45:20 [id number] For Patients: As a result of the 21st Century Cures Act, medical imaging exams and procedure reports are released immediately into your electronic medical record. You may view this report before your referring provider. If you have questions, please contact your health care provider. INDICATION: Urinary incontinence, urinary tract infection symptoms and amie-colored stools. TECHNIQUE: Axial images were obtained from the diaphragm to the pubic symphysis. Reformats were obtained in the coronal and sagittal plane. IV Contrast: Initial noncontrast followed by 100 cc Omnipaque 350 Oral Contrast: None COMPARISON: Abdomen and pelvis CT 05/19/2024 FINDINGS: Lower chest: Calcified granuloma within the left lower lobe. Liver: Unremarkable. Normal in size and attenuation. No masses. Gallbladder and bile ducts: Status post cholecystectomy. Spleen: Unremarkable. Normal in size without mass. Pancreas: Unremarkable. No mass or inflammation. Adrenal glands: Unremarkable. No nodules. Kidneys: Unremarkable. No masses, stones, or hydronephrosis. Vasculature: Unremarkable. GI tract: Status post gastric bypass. No dilated loops of small intestine. Small bowel to small bowel short segment intussusception noted within the left upper quadrant near the anastomosis (series 9, image 79; series 11, image 48). Colon decompressed with a large amount of stool within the colon. Pelvis: Anteverted uterus with intrauterine device. Dominant follicle right ovary with small free fluid in the pelvic cul-de-sac. Bladder mildly distended and unremarkable. Bones: Minimal degenerative disc disease lumbar spine. Impression: 1. No nephrolithiasis or hydronephrosis. Unremarkable CT appearance of the kidneys. 2. Status post gastric bypass with short-segment small bowel-small bowel intussusception in the left flank without evidence of obstruction. This can be an incidental finding on CT scan although if there is persistent pain, gastroenterology consultation suggested. Please note that all CT scans at this facility use dose modulation, iterative reconstruction, and/or weight-based dosing when appropriate to reduce radiation dose to as low as reasonably achievable. Dictated by Enoch Patricia MD @ 01/13/2025 10:22:11 AM (Electronically Signed) READ BY Enoch Patricia RELEASED BY BINU Addendum by [employer], Outside on 01/13/2025 10:22 AM CDT BELOW REPORT RECEIVED BY [facility] ON 01/13/2025 12:43:51 [id number] For Patients: As a result of the 21st Century Cures Act, medical imaging exams and procedure reports are released immediately into your electronic medical record. You may view this report before your referring provider. If you have questions, please contact your health care provider. INDICATION: Urinary incontinence, urinary tract infection symptoms and amie-colored stools. TECHNIQUE: Axial images were obtained from the diaphragm to the pubic symphysis. Reformats were obtained in the coronal and sagittal plane. IV Contrast: Initial noncontrast followed by 100 cc Omnipaque 350 Oral Contrast: None COMPARISON: Abdomen and pelvis CT 05/19/2024 FINDINGS: Lower chest: Calcified granuloma within the left lower lobe. Liver: Unremarkable. Normal in size and attenuation. No masses. Gallbladder and bile ducts: Status post cholecystectomy. Spleen: Unremarkable. Normal in size without mass. Pancreas: Unremarkable. No mass or inflammation. Adrenal glands: Unremarkable. No nodules. Kidneys: Unremarkable. No masses, stones, or hydronephrosis. Vasculature: Unremarkable. GI tract: Status post gastric bypass. No dilated loops of small intestine. Small bowel to small bowel short segment intussusception noted within the left upper quadrant near the anastomosis (series 9, image 79; series 11, image 48). Colon decompressed with a large amount of stool within the colon. Pelvis: Anteverted uterus with intrauterine device. Dominant follicle right ovary with small free fluid in the pelvic cul-de-sac. Bladder mildly distended and unremarkable. Bones: Minimal degenerative disc disease lumbar spine. Impression: 1. No nephrolithiasis or hydronephrosis. Unremarkable CT appearance of the kidneys. 2. Status post gastric bypass with short-segment small bowel-small bowel intussusception in the left flank without evidence of obstruction. This can be an incidental finding on CT scan although if there is persistent pain, gastroenterology consultation suggested. Please note that all CT scans at this facility use dose modulation, iterative reconstruction, and/or weight-based dosing when appropriate to reduce radiation dose to as low as reasonably achievable. Dictated by Enoch Patricia MD @ 01/13/2025 10:22:11 AM (Electronically Signed) READ BY Enoch Patricia RELEASED BY BINU Narrative IMAGING - 01/13/2025 1:13 PM CDT This order has been created and auto-finalized to support the import of outside images. If available, original interpretation can be found on the Media Tab in Chart Review, in Document Viewer, as an image in Inf[employer]View or as an Addendum. If a re-interpretation or overread is required please follow defined workflow. Procedure Note Digital Media, Outside - 01/13/2025 This order has been created and auto-finalized to support the import ofoutside images. If available, original interpretation can be found on theMedia Tab in Chart Review, in Document Viewer, as an image in InfinityViewor as an Addendum. If a re-interpretation or overread is required please follow definedworkflow. us Provider Not In System IMG CT PROCEDURES Edited Result - Final IMAGING NA * CT CHEMODENERV FACIAL TRIGEM SHAR (11/21/2024 3:00 PM CDT) Narrative MMODAL - 11/21/2024 3:00 PM CDT Jerald Ochoa M.D. 11/21/2024 3:01 PM Botox for Chronic Migraine Performed by: Jerald Ochoa M.D. Authorized by: Jerald Ochoa M.D. Care team members present 1. Aury Juan PROCEDURE DETAILS Pre-procedure pain score: 0/10 Injection of: 100 Units onabotulinumtoxinA 100 unit 50 Units onabotulinumtoxinA 50 unit Needle gauge: 30 Needle length: 0.5 in Injection site details Licensed Bondsman / Procerus muscle(s): 5 units into the left retirement village manager muscle, 5 units into the right retirement village manager muscle and 5 units into the procerus muscle (15 units total). Superior Frontalis muscle(s): 5 units into the left superior frontalis muscle and 5 units into the right superior frontalis muscle (2 injection sites per muscle) (10 units total). Temporalis muscle(s): 12.5 units into the left temporalis muscle and 12.5 units into the right temporalis muscle (2 injection sites per muscle) (25 units total). Splenius Capitis muscle(s): 12.5 units into the left splenius capitis muscle and 12.5 units into the right splenius capitis muscle (2 injection sites per muscle) (25 units total). Occipitalis muscle(s): 12.5 units into the left occipitalis muscle and 12.5 units into the right occipitalis muscle (2 injection sites per muscle) (25 units total). Trapezius muscle(s): 25 units into the left trapezius muscle and 25 units into the right trapezius muscle (3 injection sites per muscle) (50 units total). Total units wasted: 0 Total units injected: 150 CONSENT Consent obtained: written (Risks, benefits and alternatives were discussed and a written Informed Consent was obtained. Please see Informed Consent form for further details.) UNIVERSAL PROTOCOL All relevant documentation and testing were reviewed and available. All required blood products, implants, devices and or special equipment were made available as applicable. Pre-procedure verification was conducted and the correct site was marked if required. A fire risk and smoke assessment were done as applicable. The procedural time-out to verify correct patient, correct side/site, and procedure was conducted prior to performing the procedure and confirmed in a procedural pause. PRE-PROCEDURE DETAILS Reason for injections: chronic migraine Appropriate hand hygiene, gown, cap, mask, protective eyewear, sterile gloves, skin preparation, sterile drape, and strict aseptic technique were utilized as applicable for the procedure: yes Site preparation: alcohol Clinical history: Patient was made aware that they may be responsible for any and all costs associated with injection of Botulinum Toxin Type A that is not covered by a third alliance party. Prior to treatment with Botox, the frequency of headaches was greater than 28 days per month and with significant impairment in the quality of life. Please see the initial Botox injection note and Headache consultation note regarding specific details of the headache history prior to the start of treatment. Any other daily migraine prophylactic treatments taken over the last 3 months: Venlafaxine (Effexor) Headache frequency when Botox is most effective (middle month in between rounds). Current headache days per month: 4 days Current severe headache days per month: 2 days Wearing off phenomenon prior to this round of Botox: yes Duration: 2 weeks Patient finds Botox treatment helpful and wants to repeat the treatment? yes Patient had migraine headache frequency reduction by at least 26 days per month compared to pretreatment level. POST-PROCEDURE DETAILS Procedure completed successfully: yes Complications: no apparent complications Comments Medications tried prior to Botox treatment: Topamax, Effexor, Vitamin D3, Lisinopril and Metoprolol . Prior to Botox how many days per month did you miss work/school due to migraines? 2 Prior to Botox how many days per month did you miss out on family functions or home activities due to migraines? 2 Prior to Botox did severe migraines cause symptoms that impacted your quality of life and ability to care for yourself? If yes, what symptoms? Yes. Sensitivity to light, smells and sound, vision changes, anxiety, vertigo, brain fog, nausea, vomiting, tinnitus, a runny nose and a blocked or stuffy nose, head pressure and throbbing head pain. With Botox how many days per month do you miss work/school due to migraines? 1 With Botox how many days per month do you miss out on family functions or home activities due to migraines? 1 How has Botox impacted your quality of life; are you able to do more at work/school or home? None. What migraine symptoms have you noted an improvement on since starting Botox? All symptoms are showing improvement. us Jerald Ochoa M.D. NEUROLOGY ORDERABLES Final Re sult [facility] NA * (ABNORMAL) Lipid Panel (10/29/2023 7:29 AM CDT) Triglycerides 74 mg/dL 10/29/2023 8:30 AM CDT DTL Comment: ----REFERENCE VALUE---- Normal: <150 mg/dL Borderline High: 150-199 mg/dL High: 200-499 mg/dL Very High: > or =500 mg/dL Cholesterol, Total 148 mg/dL 2023 8:30 AM CDT DTL Comment: ----REFERENCE VALUE---- Desirable: < 200 mg/dL Borderline High: 200 - 239 mg/dL High: > or = 240 mg/dL Cholesterol, LDL, Calculated 93 mg/dL 10/29/2023 8:30 AM CDT DTL Comment: ----REFERENCE VALUE---- Desirable: <100 mg/dL Above Desirable: 100-129 mg/dL Borderline High: 130-159 mg/dL High: 160-189 mg/dL Very High: >=190 mg/dL ----ADDITIONAL INFORMATION---- LDL cholesterol calculated using the Glynn/NIH equation. Cholesterol, HDL, S 40(L) >=50 mg/dL 10/29/2023 8:30 AM CDT DTL Cholesterol, Non-HDL, Calculated 108 mg/dL 10/29/2023 8:30 AM CDT DTL Comment: ----REFERENCE VALUE---- Desirable: <130 mg/dL Above Desirable: 130-159 mg/dL Borderline High: 160-189 mg/dL High: 190-219 mg/dL Very High: > or =220 mg/dL Fasting (8 HR or more) Yes 10/29/2023 8:11 AM CDT DTL Blood (Blood, Venous) 10/29/2023 7:29 AM CDT 10/29/2023 8:11 AM CDT us Jerald Khoury APRN, C.N.P., [place].N.P. LAB BLOOD A DD-ON Final Result [facility] [address] [place] [address], [facility] DTL [facility] [address] [place] [address] * Basic Metabolic Panel (07/31/2023 12:20 PM TRAFFIC ENUMERATOR) [facility] Potassium, P 3.9 3.6 - 5.2 mmol/L 07/31/2023 12:49 PM TRAFFIC ENUMERATOR [employer] Sodium, P 138 135 - 145 mmol/L 07/31/2023 12:49 PM TRAFFIC ENUMERATOR [employer] Chloride, P 103 98 - 107 mmol/L 07/31/2023 12:49 PM TRAFFIC ENUMERATOR [employer] Bicarbonate, P 24 22 - 29 mmol/L 07/31/2023 12:49 PM TRAFFIC ENUMERATOR [employer] Anion Gap, P 11 7 - 15 07/31/2023 12:49 PM TRAFFIC ENUMERATOR [employer] BUN (Blood Urea Nitrogen), P 7 6 - 21 mg/dL 07/31/2023 12:49 PM TRAFFIC ENUMERATOR [employer] Creatinine 0.70 0.59 - 1.04 mg/dL 07/31/2023 12:49 PM TRAFFIC ENUMERATOR [employer] Estimated GFR (eGFR) >90 >=60 mL/min/BSA 07/31/2023 12:49 PM TRAFFIC ENUMERATOR [employer] Comment: Estimated GFR calculated using the 2020 CKD_EPI creatinine equation. Calcium, Total, P 9.4 8.6 - 10.0 mg/dL 07/31/2023 12:49 PM TRAFFIC ENUMERATOR [employer] Glucose, P 85 70 - 140 mg/dL 07/31/2023 12:49 PM TRAFFIC ENUMERATOR [employer] Blood (Blood, Venous) 07/31/2023 12:20 PM TRAFFIC ENUMERATOR 07/31/2023 12:27 PM TRAFFIC ENUMERATOR us Sandro Goldberg P.A.-C., M.S. LAB BLOOD ADD-ON Fin al Result [facility] [address] [place] [address], [place] [employer] [facility] [place] [address] [facility] [place] [address] * Hepatitis B Surface Antigen (04/18/2020 11:02 AM TRAFFIC ENUMERATOR) HBs Antigen, S Negative Negative 04/18/2020 10:01 PM TRAFFIC ENUMERATOR [facility] Blood (Blood, Venous) 04/18/2020 11:02 AM TRAFFIC ENUMERATOR 04/18/2020 3:21 PM TRAFFIC ENUMERATOR us Dameon Ladd M.D., Ph.D. LAB MICROBIOLOGY - BLOO D ORDERABLES Final Result [facility] [address] [place] [address] Critical access hospital Dept. of Laboratory Medicine and Pathology [address] [place] [id number] from Last 3 Months or Most Recently Relevant to Health Maintenance [place] [id number] [employer] Advance Directives For more information, please contact: [phone] * Full Code (Latest Code Status on File) Date Activated Date Inactivated Comments 05/06/2023 4:34 PM 05/07/2023 5:36 PM Question Answer Comments Full Code: Discussed * Full Code Date Activated Date Inactivated Comments 05/06/2023 7:11 AM 05/06/2023 4:34 PM Question Answer Comments Full Code: Discussed * Full Code Date Activated Date Inactivated Comments 10/19/2020 10:05 AM 10/19/2020 1:41 PM Question Answer Comments Full Code: Not Discussed Due to: Not medically appropriate Care Teams [employer] Relationship Specialty Start Date End Date Elsewhere, Pcp PCP - General Internal Medicine 05/20/22
--- OUTSIDE RECORDS SUMMARY | 2025-01-16 14:25 | XMS_ITS | Clinical Summary ---
Author Organization [facility] Address [address] [place] [address] Care Team Providers Care Upper Shaper Name Role Phone Phillip Murray MD Unavailable Ric Hagen DDS Unavailable [phone] Nidhi Daigle MBBS Unavailable [phone] Leigh Araiza FULL TIME STAFF INTERPRETER Student Unavailable Unav ailable Natasha Beasley RD Unavailable [phone] Nova Samaniego DO Primary Care Provider [phone] Allergies Active Allergy Reactions Criticality Noted Date Comments Homeopathic Products 03/24/2008 Lactose Nausea And Vomiting 11/19/2016 Lisinopril Rash 10/28/2017 Metformin Vomiting 07/09/2020 Medications montelukast (SINGULAIR) 10 mg tablet Take 10 mg by mouth. Active Blood Pressure MonitorIndications :HTN (hypertension) Check blood pressure once daily and record readings for appointments 1 Each 02/27/20 21 Active NebulizerIndicatio ns:Restrictive lung disease secondary to obesity Nebulizer, disposable neb kit x 4, reuseable neb kit x 1, mask x 1, filters x 1. Frequency of use: daily; Medication: albuterol Length of need: 99 months 1 Each 06/03/20 21 Active CPAPIndications:OS A (obstructive sleep apnea) New CPAP machine for home use at pressure: 5-16 cmw , Heated humidifier x 1 q 5 yr, Humidifier chamber x 1 q 6 mo, Full face mask x1 q 3mos, with cushion x 1 q mo, Heated tubing x 1 q 3 mo, Headgear x 1 q 6 mo, Filters: Disposable x 2 q mo non-disposable filters x1 q 6mo, Length of Need: 99 months, Frequency of use: Daily 1 Each 11 12/18/19 22 Active Additional Information Patient not taking.Reported on 01/11/2025 mometasone-formote rol (Dulera) 100-5 mcg/actuation inhalerIndications :Moderate persistent asthma, unspecified whether complicated (HC) Inhale 2 Puffs by mouth 2 times daily. 13 g 12/24/19 22 Active albuterol HFA (ProAir HFA) 90 mcg/actuation inhalerIndications :Mild intermittent reactive airway disease without complication (HC) Inhale 1-2 Puffs by mouth every 6 hours if needed for Shortness Of Breath. 1 Each 01/29/20 22 Active nebulizer accessories kitIndications:Mod erate persistent asthma, unspecified whether complicated (HC) For home use. Length of need: 99 2 Kit 10/25/19 23 Active levalbuterol (XOPENEX HFA) 45 mcg/actuation inhalerIndications :Moderate persistent asthma, unspecified whether complicated (HC) Inhale 1-2 Puffs by mouth every 4 hours if needed for Shortness Of Breath or Wheezing. 15 g 11/22/19 23 Active cyanocobalamin (VITAMIN B12) 1,000 mcg/mL injection Inject 1,000 mcg subcutaneous once a month. 05/07/20 23 Active losartan (COZAAR) 50 mg tabletIndications: HTN (hypertension) Take 1 Tablet (50 mg) by mouth once daily. 90 Tablet 3 07/20/19 24 Active Naratriptan HCl 1 mg tabIndications:Steve spencer with aura and without status migrainosus, not intractable Take by mouth 2 times daily if needed for Migraine. Give at minimum 4hrs apart. Max Dose: 5mg per 24hrs. 07/20/19 24 Active albuterol 0.083% (2.5 mg/3 mL) neb solutionIndication s:Restrictive lung disease secondary to obesity Inhale 3 mL (2.5 mg) via a nebulizer every 4 hours if needed for Shortness of Breath 1st choice. 90 mL 09/11/19 24 Active NebulizerIndicatio ns:Restrictive lung disease secondary to obesity Nebulizer, disposable neb kit x 4, reuseable neb kit x 1, mask x 1, filters x 1. Frequency of use: daily; Medication: albuterol Length of need: prn months 1 Each 09/11/19 24 Active albuterol-ipratrop ium (DUONEB) (2.5-0.5 mg) in 3 mL NEBULIZATION solutionIndication s:Chest pain, pleuritic Inhale 3 mL via a nebulizer 4 times daily. 1080 mL 09/11/19 24 Active hydrOXYzine HCL (ATARAX) 25 mg tabletIndications: Severe major depression (HC) TAKE 1 TABLET BY MOUTH EVERY 6 HOURS IF NEEDED FOR ANXIETY 25 Tablet 11/23/19 24 Active cholecalciferol (Vitamin D-3) 2,000 unit capsuleIndications :Vitamin D deficiency Take 2 Capsules (4,000 units) by mouth once daily. 180 Capsule 01/19/20 24 Active ferrous sulfate, 65 mg elemental, tabletIndications: Low iron Take 1 Tablet (325 mg) by mouth once daily with a meal. 90 Tablet 3 01/19/20 24 Active rimegepant (Nurtec ODT) 75 mg orally disintegrating tabletIndications: Migraine with aura and without status migrainosus, not intractable,Episod ic migraine Place 75 mg on the tongue once daily if needed for Headache. 10 Tablet 9 04/15/20 24 Active nystatin 100,000 unit/gram creamIndications:I ntertrigo Apply topically to affected area(s) two times daily. 30 g 3 10/12/19 25 Active Zepbound 15 mg/0.5 mL penIndications:Mor bid obesity (HC) Inject 15 mg subcutaneous once weekly. 12 Pen 3 11/10/19 25 Active nystatin powder powderIndications: Intertrigo Apply 1 Strip topically to affected area(s) three times daily. 60 g 3 12/10/19 25 Active desvenlafaxine succinate 50 mg Extended-Release tabletIndications: Moderate episode of recurrent major depressive disorder (HC),Generalized anxiety disorder Take 1 Tablet (50 mg) by mouth once daily. Do not crush or chew. 30 Tablet 1 12/20/19 25 Active prochlorperazine (COMPAZINE) 5 mg tabletIndications: Migraine with aura and without status migrainosus, not intractable Take 1 Tablet (5 mg) by mouth every 6 hours if needed for Nausea/Vomiting . 15 Tablet 01/12/20 25 Active prochlorperazine 5 mg tabletIndications: Migraine with aura and without status migrainosus, not intractable Take 1 Tablet (5 mg) by mouth every 6 hours if needed for Nausea/Vomiting . 15 Tablet 10/26/19 25 025 Discontin ued(Reord er (E-cancel not sent)) Hospital, Clinic, or Other Facility Administered Medication Ordered Dose Route Frequency Start Date End Date Status levonorgestrel (MIRENA) 21 mcg/24 hours (8 yrs) 52 mg intrauterine device (IUD) 1 DeviceIndications:Encounter for IUD insertion 1 Device IU Q 8 YEARS 08/09/2024 Active Active Problems Patient Care Coordination No te Formatting of this note migh t be different from the original. 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 Other proteinuria 06/16/2017 Overview (06/16/2017): Hernandez notes, 10/2016 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): Path report [facility] (spring 2016): hyperkeratoses lateral edge tongue, premalignant epithelial dysplasia HTN (hypertension) 10/20/2016 Prolonged QT interval 06/06/2016 Overview (01/12/2024): Rechecked 01/12/2024 and resolved (see scanned EKG) Depression with anxiety 09/06/2014 Vitamin D deficiency 09/06/2014 Lactose intolerance 08/22/2014 Morbid obesity 05/26/2011 Calculus of gallbladder with cholecystitis without biliary obstruction PAIGE (obstructive sleep apnea) Resolved Problems Problem Noted Date Diagnosed Date Resolved Date Type 2 diabetes mellitus wit h other diabetic kidney complication 05/23/2021 06/28/2021 Encounters Date Type Department Care Team Description 01/16/2025 2:10 PM CDT Phone Office Visit [facility] [address] [place] [address] Aden Nova Roxana, DO Telehealth; Follow Up (Continued abdominal pain, nausea ) 01/16/2025 Travel 01/13/2025 9:00 AM CDT Ancillary Procedure [facility] [address] [place] [address] Arrived 01/13/2025 8:30 AM CDT Orders Only [facility] [address] [place] [address] Lab, [place] <No scans attached> 01/13/2025 Travel 01/13/2025 Medical Messaging [facility] [address] [place] [address] Nova Samaniego, DO Checking In 01/12/2025 11:45 AM CDT Orders Only [facility] [address] [place] [address] Deirdre Pacheco <No scans attached> 01/11/2025 9:45 AM CDT Office Visit [facility] [address] [place] [address] Aden Nova Roxana, DO Urinary Problem (burning sensation started 4-5 days ago, starting a week ago there was blood when patient would wipe only on toilet paper. urgency started 3 days and has worsened ) 01/11/2025 Travel 12/14/2024 E-Consult [facility] [id number] [place] [address] Kj Aranda, PharmD 12/09/2024 2:10 PM CDT Office Visit [facility] [address] [place] [address] Nova Samaniego DO Derm Problem (f/u rash); Medication Management (Effexor, causing nausea) 12/09/2024 Travel 11/22/2024 Refill [facility] [address] [facility] [place] [address] Nova Samaniego DO Refill Request (Venlafaxine) 11/14/2024 Telephone [facility] [address] [facility] [address] Nova Samaniego DO Prior Authorization (Zepbound 15 mg/0.5 mL pen APPROVED November 14, 2024 to July 12, 2025) 10/25/2024 10:35 AM CDT Telemedicine [facility] [address] [facility] [place] [address] Nova Samaniego DO Telehealth; Questions (Hormones/depression? ) 10/25/2024 Travel from Last 3 Months Immunizations Immunization Administration Dates Next Due COVID-19 VACCINE SPIKEVAX (M ODERNA 50MCG/0.5ML) 12YO+ PFS 05/03/2024,04/22/2023 COVID-19 vaccine ([employer]-Bio [employer] 30mcg/0.3mL) PF, MDV 10/02/2020,09/05/2020 DTP-HIB 12/05/1996, 6,1995,10/04 DTaP 07/24/2000,12/05/1996 HPV 9 (Gardasil 9) 04/05/2015 Hepatitis A (Peds) 04/18/2013,09/23/2007 Hepatitis B (Peds) 04/27/1996,1995, 996 Human Papilloma Virus Vaccine 06/23/2013, 013 INFLUENZA, IIV3 PF (AGE >= 6 MO) 05/03/2024 Inactivated Polio Vaccine 07/24/2000,,1995,10/04 Influenza Virus, Unspecified 02/16/2018,03/16/20 15 Influenza, IIV3 (Age >=3 years) 04/11/2016,04/18 Influenza, IIV4 04/22/2023, 2,03/19/2021,02/20,04/29/2019,03/09/2018,06/05/2017 MENINGOCOCCAL VACCINE 2 VIAL 2MO-55YO (MENVEO) 04/18/2013 MMR 07/24/2000,12/05/1996 Pneumococcal Conj 20-valent (Prevnar 20) 04/22/2023 Pneumococcal Poly,23-Valent (Pneumovax) 03/19/2021 Polio Virus, Unspecified 07/24/2000,08/29/1996 Tdap 06/05/2017,02/11/2007 Tuberculin (PPD) 12/11/2015 Varicella Vaccine 09/23/2007,12/04/2006 Family History Medical History Relation Name Comments Hypertension Father Atrial fibrillation Maternal Grandmother Diabetes Maternal Grandmother Stroke Maternal Grandmother Alcoholism Maternal Uncle Esophageal cancer Maternal Uncle Lira's esophagus Mother Cancer Mother skin, basal jerome l Depression Mother GI Disease Mother acid reflux, hi atal hernia Leukemia Mother Melanoma Mother Osteoporosis Mother Other Mother hypoglycemic Rheum arthritis Mother Cancer-colon Other 1 maternal great aunt, diagnosed in her 50s Diabetes Other 2 paternal cousin s (two of them), type 1 Heart failure Paternal Grandfather Cancer Paternal Grandmother bladder Stroke Paternal Grandmother Suicide Attempts Paternal Uncle paternal great uncle attempted suicide Anxiety disorder Sister Other Sister Aneurysms behin d eyes Relation Name Status Comments Father Alive Maternal Grandmother Maternal Uncle Mother Alive Other 1 Other 2 Paternal Grandfather Paternal Grandmother Paternal Uncle Sister Alive Social History Tobacco Use Types Packs/Day Years Used Date Smoking Tobacco: Never Smokeless Tobacco: Never Tobacco Cessation:Counseling Given: Yes Alcohol Use Standard Drinks/Week Comments Not Currently 0 (1 standard drink = 0.6 oz pur e alcohol) occassionally PHQ-2 Answer Date Recorded PHQ-2 TOTAL SCORE 2 10/25/2024 Social Connections Answer Date Recorded Do you often feel lonely or isolated from those around you? 0 07/02/2023 Financial Resource Strain Answer Date R ecorded Difficulty of Paying Living Expenses 3 07/02/2023 Difficulty of Paying Living Expenses Not on file 07/02/2023 Food Insecurity Answer Date Recorded Do you worry your food will run out before you are able to buy more? 1 07/02/2023 Transportation Needs Answer Date Record ed Does lack of transportation keep you from medica l appointments? 1 07/02/2023 Does lack of transportation keep you from work, meetings or getting things that you need? 1 07/02/2023 Housing Stability Answer Date Recorded What is your housing situation today? 1 07/02/2023 Utilities Answer Date Recorded Do you have trouble paying f or utilities (for example, heat, electricity, water, phone)? 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 Not on file Not on file Not on file Obstetrics History Para Term AB IAB SAB Ectopic Multiple Livin g Live Births 0 0 0 0 0 0 0 0 0 0 0 Last Filed Vital Signs Vital Sign Reading Time Taken Comments Blood Pressure 119/71 01/11/2025 9:58 AM CDT Pulse 71 01/11/2025 9:58 AM CDT Temperature 36.6 C (97.9 F) 05/19/2024 9:01 AM CREDENTIALER Respiratory Rate 16 02/03/2023 12:19 PM CDT Oxygen Saturation 100% 01/11/2025 9:58 AM CDT Inhaled Oxygen Concentration - - Weight 112.7 kg (248 lb 8 oz) 01/11/2025 9:58 AM CDT Height 177.8 cm (5' 10) 04/22/2023 7:43 AM CREDENTIALER Body Mass Index 35.66 04/22/2023 7:43 AM CREDENTIALER Plan of Treatment Upcoming Encounters Date Type Department Care Team (Late st Contact Info) Description 02/03/2025 3:00 PM CDT Office Visit [facility] [address] [place] [address] Nova Samaniego, DO [address] [place] [address] Health Maintenance Due Date Last Done Comments HIV for age 15-65 2010 Hepatitis C screening for ag e 18-79 2013 BMI (ht and wt on same day) for age 18+ 04/22/2024 04/22/2023, 12/23/2021, 11/01/2021, Additional history exists Influenza Vaccine (#1) 2025 4, 04/22/2023, 05/20/2022, Additional history exists Depression screening for age 12+ 10/25/2025 10/25/2024, 01/12/2024, 10/29/2023, Additional history exists Tetanus booster 06/05/2027 06/05/2017, 02/11/2007 Pap test for age 21-65 08/09/2029 08/09/2024, 2024 Hepatitis B series for 19+ Completed 04/27, 1995, 1995 Pneumococcal series for age 6-49 Completed 04/22/20 23, 03/19/2021 COVID-19 vaccine series Completed 05/03/20 24, 04/22/2023, 05/20/2022, Additional history exists Procedures Procedure Name Priority Date/Time Associated Diagnosis Comments CT ABDOMEN PELVIS WWO STAT 01/13/2025 9:30 AM CDT Urinary incontinence, unspecified type UTI symptoms Tim-colored stools C-REACTIVE PROTEIN Routine 01/13/2025 8: 55 AM CDT Tmi-colored stools UTI symptoms Abdominal pain, generalized CBC WITH AUTO DIFFERENTIAL Routine 01/13/2025 8:55 AM CDT Tim-colored stools UTI symptoms Abdominal pain, generalized HEPATIC FUNCTION PANEL Routine 01/12/2025 11:56 AM CDT Bilirubinuria TRICHOMONAS, ALLYSON, AND BACTERIAL VAGINOSIS BY SHRAVAN Routine 01/11/2025 10:19 AM CDT UTI symptoms GC CHLAMYDIA TRACH PROBE Routine 01/11/2025 10:19 AM CDT UTI symptoms URINALYSIS MICROSCOPIC Routine 01/11/2025 9:50 AM CDT UTI symptoms URINE CULTURE Routine 01/11/2025 9:50 AM CDT UTI symptoms URINALYSIS MACROSCOPIC - [facility] ONLY POC DIP ([facility]) Routine 01/11/2025 9:50 AM CDT UTI symptoms VISION SPECIALIST THIN PREP PAP SCREEN IMAGED Routine 08/09/2024 9:21 AM CREDENTIALER Screening for cervical cancer from Last 3 Months or Most Recently Relevant to Health Maintenance Results * CT ABDOMEN PELVIS WWO (01/13/2025 9:30 AM CDT) Anatomical Region Laterality Modality Abdomen, Pelvis, AORTA, LIVER, SPLEEN Computed Tomography 01/13/2025 10:2 2 AM CDT Impressions 01/13/2025 10:22 AM CDT 1. No nephrolithiasis or hydronephrosis. Unremarkable CT [...] MD @ 01/13/2025 10:22:11 AM (Electronically Signed) Narrative 01/13/2025 10:22 AM CDT For Patients: As a result of the Century Cures Act, medical imaging exams and procedure reports are released immediately into your electronic medical record. You may view this report before your referring provider. If you have questions, please contact your health care provider. INDICATION: Urinary incontinence, urinary tract infection symptoms and tim-colored stools. TECHNIQUE: Axial images were obtained from [...] Bones: Minimal degenerative disc disease lumbar spine. Procedure Note Enoch Patricia MD - 01/13/2025 For Patients: As a result of the Cures Act, medical imagingexams and procedure reports are released immediately into your electronicmedical record. You may view this report before your referring provider.If you have questions, please contact your health care provider. INDICATION: Urinary incontinence, urinary tract infection symptoms and tim-coloredstools. TECHNIQUE: Axial images were obtained from the [...] gastric bypass. No dilated loops of small intestine.Small bowel to small bowel short segment intussusception noted within theleft upper quadrant near the anastomosis (series 9, image 79; series 11,image 48). Colon decompressed with a large amount of stool within thecolon. Pelvis: Anteverted uterus with intrauterine device. Dominant follicleright ovary with small free fluid in the pelvic cul-de-sac. Bladder mildlydistended and unremarkable. Bones: Minimal degenerative disc disease lumbar spine. IMPRESSION: 1. No nephrolithiasis or hydronephrosis. Unremarkable CT appearance of thekidneys. 2. Status post gastric bypass with short-segment small bowel-small bowelintussusception in the left flank without evidence of obstruction. Thiscan be an incidental finding on CT scan although if there is persistentpain, gastroenterology consultation suggested. Please note that all CT scans at this facility use dose modulation,iterative reconstruction, and/or weight-based dosing when appropriate toreduce radiation dose to as low as reasonably achievable. Dictated by Enoch Patricia MD @ 01/13/2025 10:22:11 AM (Electronically Signed) ASSURED PHARMACY Aden DO CT Final Result * C-REACTIVE PROTEIN (01/13/2025 8:55 AM CDT) C-REACTIVE PROTEIN <3.0 <8.0 mg/L [facility] Blood BLOOD SPECIMEN / Unknown 01/13/2025 8:55 AM CDT 01/13/2025 8:56 AM CDT ASSURED PHARMACY Aden RAMOS CHEMISTRY Final Result [facility] [address] [place] [address], [facility] [address] [place] [address] * (ABNORMAL) CBC AND DIFFERENTIAL (01/13/2025 8:55 AM CDT) WHITE BLOOD CELL COUNT 6.0 3.8 - 10.8 Thousand/u L [facility] RED BLOOD CELL COUNT 4.75 3.80 - 5.10 Million/uL [facility] HEMOGLOBIN 13.4 11.7 - 15.5 g/dL [facility] HEMATOCRIT 42.4 35.0 - 45.0 % [facility] MCV 89.3 80.0 - 100.0 fL [facility] MCH 28.2 27.0 - 33.0 pg [facility] MCHC 31.6(L) 32.0 - 36.0 g/dL [facility] Comment: For adults, a slight decrease in the calculated MCHC value (in the range of 30 to 32 g/dL) is most likely not clinically significant; however, it should be interpreted with caution in correlation with other red cell parameters and the patient's clinical condition. RDW 12.3 11.0 - 15.0 % [facility] PLATELET COUNT 261 140 - 400 Thousand/u L [facility] MPV 11.9 7.5 - 12.5 fL [facility] ABSOLUTE NEUTROPHILS 3,414 1,500 - 7,800 cells/uL [facility] ABSOLUTE LYMPHOCYTES 1,884 850 - 3,900 cells/uL [facility] ABSOLUTE MONOCYTES 570 200 - 950 cells/uL [facility] ABSOLUTE EOSINOPHILS 90 15 - 500 cells/uL [facility] ABSOLUTE BASOPHILS 42 0 - 200 cells/uL [facility] NEUTROPHILS 56.9 % [facility] LYMPHOCYTES 31.4 % [facility] MONOCYTES 9.5 % [facility] EOSINOPHILS 1.5 % [facility] BASOPHILS 0.7 % [facility] Blood BLOOD SPECIMEN / Unknown 01/13/2025 8:55 AM CDT 01/13/2025 8:56 AM CDT us Nova Samaniego DO HEMATOLOGY Final Result [facility] [address] [place] [address], [facility] [address] [place] [address] * LIVER PANEL (HEPATIC FUNCTION PANEL) (01/12/2025 11:56 AM CDT) PROTEIN, TOTAL 6.5 6.1 - 8.1 g/dL [facility] ALBUMIN 4.0 3.6 - 5.1 g/dL [facility] GLOBULIN 2.5 1.9 - 3.7 g/dL (calc) [facility] ALBUMIN/GLOBULIN RATIO 1.6 1.0 - 2.5 (calc) [facility] BILIRUBIN, TOTAL 0.7 0.2 - 1.2 mg/dL [facility] BILIRUBIN, DIRECT 0.2 < OR = 0.2 mg/dL [facility] BILIRUBIN, INDIRECT 0.5 0.2 - 1.2 mg/dL (calc) [facility] ALKALINE PHOSPHATASE 66 31 - 125 U/L [facility] AST 14 10 - 30 U/L [facility] ALT 12 6 - 29 U/L [facility] Blood BLOOD SPECIMEN / Unknown 01/12/2025 11:56 AM CDT 01/12/2025 11:58 AM CDT Narrative [facility] - 01/13/2025 5:09 AM CDT FASTING:NO FASTING: NO Nova Samaniego DO CHEMISTRY Final Result [facility] [address] [place] [address], [facility] [address] [place] [address] * TRICHOMONAS, ALLYSON, AND BACTERIAL VAGINOSIS BY SHRAVAN [[id number]] - vaginal (01/11/2025 10:19 AM CDT) [facility] ALLYSON SPECIES Negative Negative 9:28 PM CDT [facility] ALLYSON GLABRATA Negative Negative 01/11/2025 9:28 PM CDT [facility] TRICHOMONAS VVA Negative Negative 9:28 PM CDT [facility] BACTERIAL VAGINOSIS Negative Negative 01/11/2025 9:[address] [facility] Other VAGINAL SWAB / Unknown Non-Blood / Unknown 01/11/2025 10:19 AM CDT 01/11/2025 10:56 AM CDT Nova Samaniego DO MICROBIOLOGY Final Result Performing Organization Address City/[facility]/ZIP Co de Phone Number [facility] [address] [address], [place] * GC CHLAMYDIA TRACH PROBE [[id number]] - vaginal (01/11/2025 10:19 AM CDT) CHLAMYDIA PROBE Negative 9:[address] [facility] N GONORRHOEAE PROBE Negative 01/11/2025 9:[address] [facility] Other VAGINAL SWAB / Unknown Non-Blood / Unknown 01/11/2025 10:19 AM CDT 01/11/2025 10:56 AM CDT Nova Samaniego DO MICROBIOLOGY Final Result Performing Organization Address City/[facility] Co de Phone Number [facility] [address] [address], [place] * (ABNORMAL) POCT Urinalysis Dipstick Only [[id number]] (01/11/2025 9:50 AM CDT) PH 6.0 5.0 - 8.0 [facility] SPECIFIC GRAVITY 1.020 1.001 - 1.035 [facility] GLUCOSE NEGATIVE NEGATIVE [facility] BILIRUBIN 1+(A) NEGATIVE [facility] Comment: A false positive may be caused by the drug Lodine. For any presumptive positive bilirubin, consider confirmation by serum bilirubin if clinically indicated. KETONES NEGATIVE NEGATIVE [facility] OCCULT BLOOD NEGATIVE NEGATIVE [facility] PROTEIN 2+(A) NEGATIVE [facility] NITRITE NEGATIVE NEGATIVE [facility] LEUKOCYTE ESTERASE TRACE(A) NEGATIVE [facility] Urine URINE SPECIMEN / Unknown 01/11/2025 9:50 AM CDT 01/11/2025 9:54 AM CDT [facility] Deon[facility] DO URINE Final Result [facility] [address] [place] [address], [facility] [address] [place] [address] * (ABNORMAL) URINALYSIS MICROSCOPIC [58787.1] - routine (01/11/2025 9:50 AM CDT) RBC 6-10(A) 0-2, None Seen /HPF 01/11/2025 6:[address] [facility] WBC 3-5 0-2, 3-5, None Seen /HPF 01/11/2025 6:[address] [facility] BACTERIA Rare None Seen, Rare, Few Bacteria/ HPF 01/11/2025 6:[address] [facility] EPITHELIAL CELLS Few None Seen, Few Epi/HPF 01/11/2025 6:41 PM [address] [facility] HYALINE CASTS 0-2 0-2, 3-5 /LPF 01/11/2025 6:[address] [facility] CALCIUM OXALATE CRYSTALS Present(A) (none) 01/11/2025 6:[address] [facility] Urine URINE SPECIMEN / Unknown Non-Blood / Unknown 01/11/2025 9:50 AM CDT 01/11/2025 9:53 AM CDT us Nova Roxana Deonq DO URINE Final Result [facility] [address] [place] [address], [place] * URINE CULTURE [29701.2] (01/11/2025 9:50 AM CDT) CULTURE <10,000 CFU/mL multiple organisms 01/12/2025 3:[address] [facility] Urine URINE SPECIMEN / Unknown Non-Blood / Unknown 01/11/2025 9:50 AM CDT 01/11/2025 9:53 AM CDT Nova Samaniego DO MICROBIOLOGY Final Result [facility] [address] [place] [address], [place] * VISION SPECIALIST THIN PREP PAP SCREEN IMAGED [[id number]] (08/09/2024 9:21 AM CREDENTIALER) Case Report Gynecologic Cytology Report Case: [id number] Authorizing Provider: Nova Samaniego DO Collected: 08/09/2024920 Ordering Location: [facility] Received: 08/09/2024 09 Clinic First Screen: Eliecer Damico Specimen: VISION SPECIALIST ThinPrep Vial Screening, Cervical 08/19/2024 9:39 AM [facility] INTERPRETATION/ RESULT NEGATIVE FOR INTRAEPITHELIAL LESION OR MALIGNANCY (NIL) (none) 08/19/2024 9:39 AM CREDENTIALER [facility] at 0939 CREDENTIALER SPECIMEN ADEQUACY Satisfactory for evaluation Endocervical component present 08/19/2024 9:39 AM [facility] HPV REQUEST HPV and PAP 08/19/2024 9:39 AM [facility] Date of LMP 07/10/2024 08/19/2024 9:39 AM CREDENTIALER [facility] [email or web address] ENTRAL LABORATORY Last Pap Date unknown/first pap 03/12/2024 9:39 AM CREDENTIALER [facility] Last Pap Result First Pap/Unknown 9:39 AM CREDENTIALER [facility] Abnormal Pap or Allen Bx in last 5 years No 08/19/2024 9:39 AM CREDENTIALER [facility] ENTRCT LABORATORY Menstrual Status Regular Periods 08/19/2024 9:39 AM CREDENTIALER [facility] Allen Bx Done Today No 08/19/2024 9:39 AM CREDENTIAL[facility] Additional Information None given 08/19/2024 9:39 AM CREDENTIALER [facility] Comment: Cytology is screened at [facility] - [address], [place] [address] and [facility] - [address], [place] [address] and [facility] - [address] [place] [address] Interpreted at [facility] - [address] [facility] [place] [address] Automated Review Successful 08/19/2024 9:39 AM CREDENTIALER [facility] Comment:Specimen processed s uccessfully by automated scale balancer device, ThinPrep Imaging System, [employer] ANCILLARY TESTING VISION SPECIALIST HPV Ordered, Please see separate report 08/19/2024 9:39 AM [facility] Note The pap test is a screening technique, not a diagnostic procedure. It is used primarily to screen for squamous cancers and precursor lesions. Published studies have shown that it is subject to both false negative and false positive results. The pap test should not be used as the sole means to diagnose or exclude pre-malignant and malignant lesions. 08/19/2024 9:39 AM [facility] Other (Cervical) Non-Blood / Unknown 08/09/2024 9:21 AM CREDENTIALER 08/09/2024 9:21 AM CREDENTIALER us Nova Samaniego DO PATHOLOGY/CYTOLOGY Final Resu lt [facility] [address] [place] [address], [place] from Last 3 Months or Most Recently Relevant to Health [place] [id number] [employer] MATHIEU SCOTT [id number] [facility] [employer] [facility] [place] SCOTT [id number] [facility] [employer] M[place]IE[place] SCOTT [id number] [address] [place] [id number] Advance Directives * Full Code (Latest Code Status on File) Date Activated Date Inactivated Comments 02/24/2020 10:36 AM 02/24/2020 7:52 PM Question Answer Comments Code Status Discussion: Discussed * Full Code Date Activated Date Inactivated Comments 01/18/2020 10:39 PM 01/19/2020 11:47 AM * Full Code Date Activated Date Inactivated Comments 08/16/2019 1:39 AM 08/16/2019 7:16 PM * Full Code Date Activated Date Inactivated Comments 11/25/2018 7:30 AM 11/25/2018 12:17 PM Care Teams Upper Shaper Relationship Specialty Start Date End Date Nova Samaniego Roxana [address] [place] [address] PCP - General Family Practice 07/02/22 Phillip Murray MD [address] [place] [address] Nephrology 11/19/16 Ric Hagen DDS [address] [place] [address] Surgery - Oral and Maxillofacial 11/19/16 Nidhi Daigle MBBS [address] [place] [address] Consulting Physician Family Practice 01/23/20 Leigh Araiza, FULL TIME STAFF INTERPRETER Student [address] [place] [address] Registered Nurse Registered Nurse 01/23/[address] Shanelle Javed [facility] [address] [place] [address] Registered Dietitian Dance Choreographer 06/20/20
[2025-01-16 14:26] LABS: Appearance Urine Clear (Clear)
[2025-01-16 14:30] LABS: Ur HCG Qualitative* Negative (Negative)
--- NOTE | 2025-01-16 14:33 | ED_ITS ---
<Statement entered by Yvette Denny MD - 01/18/25 11:02> I did not see this patient HPI - Abdominal Pain General Date Seen: 01/16/25 <Oumar De Jesus MD - Last Filed: 01/16/25 14:40> Chief Complaint: Abdominal Pain <Oumar De Jesus MD - Last Filed: 01/16/25 14:40> Stated Complaint: aBDOMINAL PAIN <Oumar De Jesus MD - Last Filed: 01/16/25 14:40> Time Seen by Provider: 01/16/25 13:42 <Oumar De Jesus MD - Last Filed: 01/16/25 14:40> Source: patient <Oumar De Jesus MD - Last Filed: 01/16/25 14:40> Mode of arrival: ambulatory <Oumar De Jesus MD - Last Filed: 01/16/25 14:40> Limitations: no limitations <Oumar De Jesus MD - Last Filed: 01/16/25 14:40> History of Present Illness HPI narrative: Patient is a very nice 29-year-old female presents here with crampy left lower quadrant abdominal discomfort she has had on off, she saw her primary and had a urinalysis that was done, which was not grew negative. CT was done which shows some small bowel intussusception, they were worried that possibly this was what is going on with her. She is very nauseous and unable to keep fluids down. 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 No blood she is vomiting up denies coffee-grounds, had 3 large bowel movements over the past 5 days, by using MiraLax. Does have a history of some constipation. Denies dysuria frequency denies any history of fevers chills or sweats. Has not been drinking a large amount of fluid. <Oumar De Jesus MD - Last Filed: 01/16/25 14:40> Related Data Home Medications: Home Medications ?Medication ?Instructions ?Recorded ?Confirmed cyanocobalamin (vitamin B-12) mcg 01/16/25 1,000 mcg/mL injection solution desvenlafaxine succinate 50 mg 50 mg PO DAILY 01/16/25 01/16/25 tablet,extended release 24 hr losartan 50 mg tablet 50 mg PO DAILY 01/16/25 0810/07 naratriptan 2.5 mg tablet PO 01/16/25 omeprazole 40 mg capsule,delayed 40 mg PO 01/16/25 release prochlorperazine maleate 5 mg 5 mg PO Q6H PRN nausea/v omiting 01/16/25 01/16/25 tablet tirzepatide (weight loss) 15 15 mg subcut QWEEK 01/16/25 mg/0.5 mL subcutaneous pen injector (Zepbound) Previous Rx's ?Medication ?Instructions ?Recorded tramadol 50 mg tablet 50 mg PO Q6H PRN pain #20 ta bs 01/16/25 <Oumar De Jesus MD - Last Filed: 01/16/25 14:40> Allergies/Adverse Reactions: Allergies Allergy/AdvReac Type Severity Reaction Status Date / Time lisinopril Allergy Rash Verified 01/16/25 13:34 metformin AdvReac Diarrhea Verified 01/16/25 13:34 <Oumar De Jesus MD - Last Filed: 01/16/25 14:40> Review of Systems Status of ROS Reports: 10 or more systems reviewed and unremarkable except as noted in History and below <Oumar De Jesus MD - Last Filed: 01/16/25 14:40> [facility] Social History: Social History Smoking Status: Never smoker Do you use any of these nicotine containing products: None Second hand tobacco smoke exposure: No How often do you have a drink containing alcohol: never How often do you have six or more drinks on one occasion: Never AUDIT-C Alcohol total score: 0 Non-prescribed substance use: denies use service: No <Oumar De Jesus MD - Last Filed: 01/16/25 14:40> Exam Narrative: Exam Narrative: On examination in room 3 she is in no apparent distress very nice lady not toxic, pupils equal round reactive to light TMs normal oropharynx normal neck is supple full range of motion chest is good air entry bilaterally no wheezing crackles noted heart sounds normal clicks murmurs gallops abdomen is soft no guarding deep in the left lower quadrant there is some mild tenderness, I noted with this. I do not see any signs of masses, bowel sounds are normal. No CVA tenderness, skin result petechiae rashes he moves all extremities independently and well. <Oumar De Jesus MD - Last Filed: 01/16/25 14:40> Const: Vital Signs, click to edit/add: Vital Signs - 24 hr 01/16/25 13:27 Temperature 96.0 F L Pulse Rate [Pulse Oximeter] 74 Respiratory Rate 16 Blood Pressure [Ri ght Upper Arm] 142/95 H Pulse Oximetry 100 Oxygen Delivery Me thod Room Air <Oumar De Jesus MD - Last Filed: 01/16/25 14:40> Vital Signs, click to edit/add: Vital Signs - 24 hr 01/16/25 13:27 Temperature 96.0 F L Pulse Rate [Pulse Oximeter] 74 Respiratory Rate 16 Blood Pressure [Ri ght Upper Arm] 142/95 H Pulse Oximetry 100 Oxygen Delivery Me thod Room Air <London Rousseau MD - Last Filed: 01/16/25 17:16> Course Vital Signs Vital signs: Initial Vital Signs Temperature 96.0 F L 01/16/25 13:27 Temperature Source Temporal Artery Scan 01/16/25 13:27 Pulse Rate 74 01/16/25 13:27 Pulse Rhythm Regular 01/16/25 13:27 Respiratory Rate 16 01/16/25 13:27 Blood Pressure 142/95 H 01/16/25 13:27 Blood Pressure Mean 110 H 01/16/25 13:27 Blood Pressure Position Sitting 01/16/25 13:27 Pulse Oximetry 100 01/16/25 13:27 Oxygen Delivery Method Room Air 01/16/25 13:27 Vital Signs Temperature 96.0 F L 01/16/25 13:27 Pulse Rate 74 01/16/25 13:27 Respiratory Rate 16 01/16/25 13:27 Blood Pressure 142/95 H 01/16/25 13:27 Pulse Oximetry 100 01/16/25 13:27 Oxygen Delivery Method Room Air 01/16/25 13:27 Temperature 96.0 F L 01/16/25 13:27 Pulse Rate 87 01/16/25 17:26 Respiratory Rate 18 01/16/25 17:26 Blood Pressure 149/89 H 01/16/25 17:26 Pulse Oximetry 97 01/16/25 15:42 Oxygen Delivery Method Room Air 01/16/25 13:27 <Oumar De Jesus MD - Last Filed: 01/16/25 14:40> Initial Vital Signs Temperature 96.0 F L 01/16/25 13:27 Temperature Source Temporal Artery Scan 01/16/25 13:27 Pulse Rate 74 01/16/25 13:27 Pulse Rhythm Regular 01/16/25 13:27 Respiratory Rate 16 01/16/25 13:27 Blood Pressure 142/95 H 01/16/25 13:27 Blood Pressure Mean 110 H 01/16/25 13:27 Blood Pressure Position Sitting 01/16/25 13:27 Pulse Oximetry 100 01/16/25 13:27 Oxygen Delivery Method Room Air 01/16/25 13:27 Vital Signs Temperature 96.0 F L 01/16/25 13:27 Pulse Rate 74 01/16/25 13:27 Respiratory Rate 16 01/16/25 13:27 Blood Pressure 142/95 H 01/16/25 13:27 Pulse Oximetry 100 01/16/25 13:27 Oxygen Delivery Method Room Air 01/16/25 13:27 Temperature 96.0 F L 01/16/25 13:27 Pulse Rate 87 01/16/25 17:26 Respiratory Rate 18 01/16/25 17:26 Blood Pressure 149/89 H 01/16/25 17:26 Pulse Oximetry 97 01/16/25 15:42 Oxygen Delivery Method Room Air 01/16/25 13:27 <London Rousseau MD - Last Filed: 01/16/25 17:16> Medications Administered Medications: Discontinued Medications Generic Name Dose Route Start Last Admin Trade Name Manisha PRN Reason Stop Dose Admin Hydromorphone HCl 0.5 mg 01/16/25 14:08 01/16/25 14:24 Hydromorphone 0.5 Mg/0.5 Ml Inj IVP 01/16/25 14:09 0.5 mg ONCE ONE Administration Hydromorphone HCl 0.5 mg 01/16/25 16:14 01/16/25 16:20 Hydromorphone 0.5 Mg/0.5 Ml Inj IVP 01/16/25 16:15 0.5 mg ONCE ONE Administration Sodium Chloride 1,000 mls @ 1,000 mls/hr 01/16/25 14:15 01/16/25 16:44 0.9 % Sodium Chloride 1000 Ml IV 01/16/25 15:14 Infused .Q1H BRAULIO Infusion Methylprednisolone Sodium Succinate 125 mg 01/16/25 17:11 01/16/25 17:22 Methylprednisolone Sod Succ 62.5 Mg/Ml (125) IVP 01/16/25 17:12 125 mg ONCE ONE Administration <Oumar De Jesus MD - Last Filed: 01/16/25 14:40> Discontinued Medications Generic Name Dose Route Start Last Admin Trade Name Manisha PRN Reason Stop Dose Admin Hydromorphone HCl 0.5 mg 01/16/25 14:08 01/16/25 14:24 Hydromorphone 0.5 Mg/0.5 Ml Inj IVP 01/16/25 14:09 0.5 mg ONCE ONE Administration Hydromorphone HCl 0.5 mg 01/16/25 16:14 01/16/25 16:20 Hydromorphone 0.5 Mg/0.5 Ml Inj IVP 01/16/25 16:15 0.5 mg ONCE ONE Administration Sodium Chloride 1,000 mls @ 1,000 mls/hr 01/16/25 14:15 01/16/25 16:44 0.9 % Sodium Chloride 1000 Ml IV 01/16/25 15:14 Infused .Q1H BRAULIO Infusion Methylprednisolone Sodium Succinate 125 mg 01/16/25 17:11 01/16/25 17:22 Methylprednisolone Sod Succ 62.5 Mg/Ml (125) IVP 01/16/25 17:12 125 mg ONCE ONE Administration <London Rousseau MD - Last Filed: 01/16/25 17:16> MDM - Abdominal Pain MDM Narrative Medical decision making narrative: During the evaluation of this patient I considered multiple differential diagnosis including life-threatening differentials which are appendicitis, aortic aneurysm, mesenteric ischemia, bowel perforation, ectopic , volvulus and bowel obstruction, other differential diagnosis include but are not limited to inflammatory bowel disease, cholecystitis, pancreatitis, hepatitis, gastritis, GERD, diverticulitis, peptic ulcer disease, pyelonephritis/UTI, renal colic/stone, pelvic inflammatory disease, cervicitis, endometritis, intrauterine , dysfunctional uterine bleeding, ovarian cyst/torsion, spontaneous as well as other etiologies I did review her CT which showed the intussusception, this can be an incidental finding, we will repeat her laboratory tests give her some Dilaudid, which can make her constipation if that is the cause worse. She did have an upper endoscopy done at the [facility] she believes in July 2024, that was normal and they just increased her proton pump inhibitor. I think it would be reasonable to do a CT here with IV and oral contrast I have a call into Radiology to figure out which we did do this. <Oumar De Jesus MD - Last Filed: 01/16/25 14:40> During the evaluation of this patient I considered multiple differential diagnosis including life-threatening differentials which are appendicitis, aortic aneurysm, mesenteric ischemia, bowel perforation, ectopic , volvulus and bowel obstruction, other differential diagnosis include but are not limited to inflammatory bowel disease, cholecystitis, pancreatitis, hepatitis, gastritis, GERD, diverticulitis, peptic ulcer disease, pyelonephritis/UTI, renal colic/stone, pelvic inflammatory disease, cervicitis, endometritis, intrauterine , dysfunctional uterine bleeding, ovarian cyst/torsion, spontaneous as well as other etiologies I did review her CT which showed the intussusception, this can be an incidental finding, we will repeat her laboratory tests give her some Dilaudid, which can make her constipation if that is the cause worse. She did have an upper endoscopy done at the [facility] she believes in July 2024, that was normal and they just increased her proton pump inhibitor. I think it would be reasonab le to do a CT here with IV and oral contrast I have a call into Radiology to figure out which we did do this. Lab and imaging results returned with no findings to explain the patient's symptoms. This is reassuring however she is reporting significant pain such that she states she did not sleep much at all last night. She is okay to be discharged home. She does have a follow-up appointment in 3 days with her GI team. I did administer a 1 time dose of methylprednisolone 125 mg. I also provided a prescription for tramadol for symptomatic relief. She understands that this medicine is constipating. <London Rousseau MD - Last Filed: 01/16/25 17:16> Differential Diagnosis Differential diagnosis: Likely abdominal pain, acute appendicitis, calculus of kidney, constipation, diverticulitis, endometriosis, gastroenteritis, pancreatitis and small bowel obstruction <Oumar De Jesus MD - Last Filed: 01/16/25 14:40> Medical Records Attestation: I reviewed the patient's medical records. <Oumar De Jesus MD - Last Filed: 01/16/25 14:40> Medical records narrative: [facility], and spoke to her primary physician Dr. Samaniego <Oumar De Jesus MD - Last Filed: 01/16/25 14:40> Lab Data Attestation: I reviewed the patient's lab results. <Oumar De Jesus MD - Last Filed: 01/16/25 14:40> Labs: Lab Results 01/16/25 01/16/25 Range/Units 14:15 14:23 WBC 5.83 (4.50-11.00) K/uL RBC 4.95 (4.00-5.20) m/uL Hgb 13.9 (12.0-16.0) gm/dL Hct 42.6 (33.0-51.0) % MCV 86 (80-100) fL MCH 28 (26-34) pg MCHC 33 (32-36) gm/dL RDW Coeff of Vikki 12.2 (11.5-15.5) % Plt Count 277 (140-440) K/uL Neut % (Auto) 55.3 (42.0-72.0) % Lymph % (Auto) 33.6 (20-44) % Pitt % (Auto) 9.1 (0.0-11.0) % Eos % (Auto) 1.5 (0.0-7.0) % Baso % (Auto) 0.3 (0.0-3.0) % Neut # (Auto) 3.22 (1.7-7.0) K/uL Lymph # (Auto) 1.96 (0.90-2.90) K/uL Pitt # (Auto) 0.50 (0.00-0.90) K/UL Eos # (Auto) 0.09 (0.00-0.50) K/uL Baso # (Auto) 0.02 (0.00-0.30) K/uL Abs Immat Gran (auto) 0.01 (0.00-0.30) K/uL Imm/Tot Granulo (auto) 0.2 % Sodium 137 (135-149) mmol/L Potassium 4.8 (3.6-5.1) mmol/L Chloride 104 (96-114) mmol/L Carbon Dioxide 25 (20-32) mmol/L Anion Gap 8 (7-15) mEq/L BUN 14 (5-24) mg/dL Creatinine 0.7 (0.5-1.5) mg/dL Estimated Creat Clear 128.23 Estimated GFR 120 ml/min Glucose 85 (60-115) mg/dL Lactate 0.7 (0.5-1.9) mmol/L Calcium 9.8 (8.4-10.6) mg/dL Total Bilirubin 0.9 (0.1-1.5) mg/dL Direct Bilirubin 0.0 (0.0-0.5) mg/dL AST 23 (12-35) U/L ALT 19 (4-35) U/L Alkaline Phosphatase 64 (40-150) U/L C-Reactive Protein < 0.5 L (0.5-1.0) mg/dL Total Protein 7.6 (6.0-8.3) g/dL Albumin 4.5 (3.3-5.0) g/dL Lipase 64 (23-300) U/L Urine Color Yellow (Yellow) Urine Appearance Clear (Clear) Urine pH 7.5 (5.0-8.5) Ur Specific [place] 1.015 (1.000-1.030) Urine Protein Negative (Negative) Urine Glucose (UA) Negative (Negative) Urine Ketones Negative (Negative) Urine Blood Negative (Negative) Urine Nitrite Negative (Negative) Urine Bilirubin Negative (Negative) Urine Urobilinogen 0.2 (0.2-1.0) Ur Leukocyte Esterase Negative (Negative) Urine RBC 0-2 (0-2) Urine WBC 0-2 (0-5) Ur Squamous Epith Cells Few (None-Few) Urine Bacteria Few A (None) Urine HCG, Qual Negative (Negative) <Oumar De Jesus MD - Last Filed: 01/16/25 14:40> Lab Results 01/16/25 01/16/25 Range/Units 14:15 14:23 WBC 5.83 (4.50-11.00) K/uL RBC 4.95 (4.00-5.20) m/uL Hgb 13.9 (12.0-16.0) gm/dL Hct 42.6 (33.0-51.0) % MCV 86 (80-100) fL MCH 28 (26-34) pg MCHC 33 (32-36) gm/dL RDW Coeff of Vikki 12.2 (11.5-15.5) % Plt Count 277 (140-440) K/uL Neut % (Auto) 55.3 (42.0-72.0) % Lymph % (Auto) 33.6 (20-44) % Pitt % (Auto) 9.1 (0.0-11.0) % Eos % (Auto) 1.5 (0.0-7.0) % Baso % (Auto) 0.3 (0.0-3.0) % Neut # (Auto) 3.22 (1.7-7.0) K/uL Lymph # (Auto) 1.96 (0.90-2.90) K/uL Pitt # (Auto) 0.50 (0.00-0.90) K/UL Eos # (Auto) 0.09 (0.00-0.50) K/uL Baso # (Auto) 0.02 (0.00-0.30) K/uL Abs Immat Gran (auto) 0.01 (0.00-0.30) K/uL Imm/Tot Granulo (auto) 0.2 % Sodium 137 (135-149) mmol/L Potassium 4.8 (3.6-5.1) mmol/L Chloride 104 (96-114) mmol/L Carbon Dioxide 25 (20-32) mmol/L Anion Gap 8 (7-15) mEq/L BUN 14 (5-24) mg/dL Creatinine 0.7 (0.5-1.5) mg/dL Estimated Creat Clear 128.23 Estimated GFR 120 ml/min Glucose 85 (60-115) mg/dL Lactate 0.7 (0.5-1.9) mmol/L Calcium 9.8 (8.4-10.6) mg/dL Total Bilirubin 0.9 (0.1-1.5) mg/dL Direct Bilirubin 0.0 (0.0-0.5) mg/dL AST 23 (12-35) U/L ALT 19 (4-35) U/L Alkaline Phosphatase 64 (40-150) U/L C-Reactive Protein < 0.5 L (0.5-1.0) mg/dL Total Protein 7.6 (6.0-8.3) g/dL Albumin 4.5 (3.3-5.0) g/dL Lipase 64 (23-300) U/L Urine Color Yellow (Yellow) Urine Appearance Clear (Clear) Urine pH 7.5 (5.0-8.5) Ur Specific [place] 1.015 (1.000-1.030) Urine Protein Negative (Negative) Urine Glucose (UA) Negative (Negative) Urine Ketones Negative (Negative) Urine Blood Negative (Negative) Urine Nitrite Negative (Negative) Urine Bilirubin Negative (Negative) Urine Urobilinogen 0.2 (0.2-1.0) Ur Leukocyte Esterase Negative (Negative) Urine RBC 0-2 (0-2) Urine WBC 0-2 (0-5) Ur Squamous Epith Cells Few (None-Few) Urine Bacteria Few A (None) Urine HCG, Qual Negative (Negative) <London Rousseau MD - Last Filed: 01/16/25 17:16> Discharge Plan Discharge Clinical Impression: Abdominal pain <Oumar De Jesus MD - Last Filed: 01/16/25 14:40> Patient Disposition: Home, Self-Care <Oumar De Jesus MD - Last Filed: 01/16/25 14:40> Condition: Stable <Oumar De Jesus MD - Last Filed: 01/16/25 14:40> Additional Instructions: Take medication as needed and directed. Continue other plans as usual. Follow up with MD in 3 days as scheduled. Return if worsening. <Oumar De Jesus MD - Last Filed: 01/16/25 14:40> Prescriptions: New tramadol 50 mg tablet 50 mg PO Q6H PRN (Reason: pain) Qty: 20 0RF No Action losartan 50 mg tablet 50 mg PO DAILY Zepbound 15 mg/0.5 mL pen injector 15 mg subcut QWEEK prochlorperazine maleate 5 mg tablet 5 mg PO Q6H PRN (Reason: nausea/vomiting) omeprazole 40 mg capsule,delayed release(DR/EC) 40 mg PO cyanocobalamin (vitamin B-12) 1,000 mcg/mL solution Patient Comments: [NO ORIGINAL SIG] naratriptan 2.5 mg tablet PO desvenlafaxine succinate 50 mg tablet extended release 24 hr 50 mg PO DAILY <Oumar De Jesus MD - Last Filed: 01/16/25 14:40> Follow Up/Referrals: Nova Samaniego DO [Primary Care Provider, Family Practice] <Oumar De Jesus MD - Last Filed: 01/16/25 14:40> Stand Alone Forms: MyHealth Info Instructions <Oumar De Jesus MD - Last Filed: 01/16/25 14:40>
[2025-01-16 14:34] LABS: Lactate* 0.7 mmol/L (0.5-1.9)
[2025-01-16 14:35] LABS: Hematocrit 42.6 % (33.0-51.0); Hemoglobin* 13.9 gm/dL (12.0-16.0); Immature Granulocytes Abs Auto 0.01 K/uL (0.00-0.30); Immature Granulocytes Pct Auto 0.2 %; Lymphocytes Absolute Auto 1.96 K/uL (0.90-2.90); Mean Corpuscular HGB Conc 33 gm/dL (32-36); Mean Corpuscular Hemoglobin 28 pg (26-34); Mean Corpuscular Volume 86 fL (80-100); RDW Coefficient of Variation % 12.2 % (11.5-15.5); Red Blood Count 4.95 m/uL (4.00-5.20); White Blood Count* 5.83 K/uL (4.50-11.00)
[2025-01-16 14:37] LABS: Slide Review Reflex No
[2025-01-16 14:50] LABS: Albumin* 4.5 g/dL (3.3-5.0); Chloride* 104 mmol/L (96-114); Potassium* 4.8 mmol/L (3.6-5.1); Sodium* 137 mmol/L (135-149)
[2025-01-16 14:53] LABS: Alanine Aminotransferase* 19 U/L (4-35); Alkaline Phosphatase* 64 U/L (40-150); Anion Gap 8 mEq/L (7-15); Aspartate Amino Transferase* 23 U/L (12-35); Bilirubin Direct* 0.0 mg/dL (0.0-0.5); Bilirubin Total* 0.9 mg/dL (0.1-1.5); Blood Urea Nitrogen* 14 mg/dL (5-24); Carbon Dioxide* 25 mmol/L (20-32); Creatinine* 0.7 mg/dL (0.5-1.5); Est. Creatinine Clearance* 128.23; Estimated Glomerular Filt Rate 120 ml/min; Total Protein* 7.6 g/dL (6.0-8.3)
[2025-01-16 14:54] LABS: Calcium* 9.8 mg/dL (8.4-10.6); Glucose* 85 mg/dL (60-115)
[2025-01-16 15:42] VITALS: O2SAT 97
[2025-01-16] MEDS: METHYLPREDNISOLONE SOD SUCC 62.5 MG/ML (125) 125 MG IVP (17:22)
[2025-01-16 17:26] VITALS: BP 149/89; PULSE 87; RESP 18
== END 2025-01-16 17:28 | disposition home or self-care (01) ==
PROVIDERS: Family Medicine; Emergency Provider Family Medicine; PCP Family Medicine
DX: R10.9 Unspecified abdominal pain (principal)
CPT/HCPCS: 36415; 74177; 80048; 80076; 81001; 81025; 83605; 83690; 85025; 86140; 87086; 94761; 96361; 96374; 96375; 99281; 99284; 99285; J1171; J2919; J7030; Q9965; Q9967

== ENCOUNTER 2025-04-07 10:48 | Outpatient (CLI) | payer OTHER, SELFPAY | END 2025-04-07 10:49 | disposition home or self-care (01) | LOC: INJ CL 10:49 | PROVIDERS: PCP Family Medicine; Visit Provider Family Medicine | DX: M54.16 Radiculopathy, lumbar region (principal); M51.369 Other intervertebral disc degeneration, lumbar region without mention of lumbar back pain or lower extremity pain | CPT/HCPCS: 62323; J0702; Q9966 ==